=== PATIENT | male | born 1995 | race African-American/Black ===

== ENCOUNTER 2021-07-27 10:58 | Emergency (ER) | payer MEDICAID, SELFPAY ==
[2021-07-27 12:28] VITALS: BP 122/84; PULSE 85; RESP 18; TEMP 36.8; O2SAT 98; BMI 31.6
--- NOTE | 2021-07-27 17:29 | ED.MALEGU ---
HPI - Male Genitourinary General Chief complaint: Urogenital-Male Stated complaint: general discomfort Time Seen by Provider: 07/27/21 17:27 Source: patient Mode of arrival: ambulatory Limitations: no limitations History of Present Illness HPI Narrative: 26 y/o male presenting with dysuria and yellowish penile discharge that started about 4 days ago. It is worsening. It started gradually and has been getting worse. He had unprotected sex with a new partner about 3 weeks ago and is concerned for STI. He has a history of Gonorrhea and reports his symptoms feel the same as when he had that. He denies fevers, testicular pain, abdominal pain, nausea and vomiting. MD Complaint: penile discharge and dysuria Onset (ago): day(s) (4) Duration: intermittent Location: penis Severity: moderate Quality: burning Relieving factors: none Exacerbating factors: urination Context: new sexual partner Associated symptoms: Reports discharge Related Data Sexually active: Yes Previous Rx's Medication Instructions Recorded doxycycline hyclate 100 mg tablet 100 mg PO BID #14 tab 07/27/21 Allergies Allergy/AdvReac Type Severity Reaction Status Date / Time No Known Allergies Allergy Verified 07/27/21 12:28 [No Known Allergies*] Review of Systems Review of Systems: Constitutional: No Fever, No Chills ENT/Mouth: No sore throat Cardiovascular: No Chest Pain, No SOB Gastrointestinal: No Nausea, No Vomiting, No Diarrhea, No abdominal Pain Genitourinary: + Dysuria, No Urinary Frequency, No Hematuria, +penile discharge Musculoskeletal: No joint pain, No Myalgias Skin: No Skin Lesions, No rash Psych: + Anxiety/Panic, No Depression Heme/Lymph: No Lymphadenopathy PMFSH Social History Social History Advance Directives: No Advance Directives Information Provided: Yes Physical Exam Vital Signs: Vital Signs: Last Vital Signs Temp 98.3 F 07/27/21 12:28 Pulse 85 07/27/21 12:28 Resp 18 07/27/21 12:28 BP 122/84 07/27/21 12:28 Pulse Ox 98 07/27/21 12:28 BMI result Body Mass Index 31.6 Appearance: Alert. Oriented X3. No acute distress. HEENT: normal inspection CVS: Normal heart rate and rhythm. Pulses normal. Respiratory: No respiratory distress. Speaking in clear sentences Skin: Skin warm and dry. Normal skin color. Normal skin turgor. No rashes. : normal inspection of external genitalia, nontender testicles, no urethral discharge, no penile lesions Extremities: normal inspection, normal ROM Neuro: Oriented X 3. Grossly normal Course Course Course Narrative: 26 y/o male presenting with urethral discharge and mild dysuria s/p unprotected sex 3 weeks ago. Symptoms consistent with urethritis, most likely CT/NG so will treat empirically. Patient agreeable with plan. Encouraged to follow up with [facility] for additional testing and follow up. Stable for d/c home with continued rx for doxycycline. Critical Care Time Critical Care Time Critical Care Time: No Discharge Plan Discharge Clinical Impression: Urethritis Patient Disposition: Home, Self-Care Instructions: Gonorrhea (ED), Nonspecific Urethritis in Men (ED) Additional Instructions: You were treated for possible Gonorrhea, Chlamydia and Trichomonas Your urine was tested for these infections - IF any are positive we will call you and let you know Recommend also taking the prescribed antibiotic for increase in resistance Follow up with your doctor and/or the [facility] for additional STD testing If you develop new or worsening symptoms call 911 or come back to the ER for further evaluation. Prescriptions: New doxycycline hyclate 100 mg tablet 100 mg PO BID Qty: 14 RF: 0
[2021-07-27] MEDS: metroNIDAZOLE 500 MG TABLET 2000 MG PO (17:51)
[2021-07-27] MEDS: Azithromycin 500 MG TABLET 1000 MG PO (17:56)
[2021-07-27] MEDS: Ondansetron ODT 4 MG TAB.RAPDIS TRANSLINGU (17:56)
[2021-07-27 18:16] LABS: Appearance Urine CLEAR; Color Urine YELLOW; Glucose Urine UA NEG (NEG); Leukocyte Esterase Urine NEG (NEG); Nitrite Urine NEG (NEG); Specific Gravity - Urine 1.025 (1.005-1.025); Urine Blood NEG (NEG); Urine Ketones NEG (NEG); Urine Protein NEG (NEG-TRACE)
[2021-07-27] MEDS: Lidocaine HCl 1 % 20 ML VIAL INFILTRATI (18:21)
[2021-07-27] MEDS: cefTRIAXone sodium 500 MG VIAL IM (18:21)
[2021-07-28 05:32] LABS: CT PCR NOT DETECTED (Not Detect.); NG PCR NOT DETECTED (Not Detect.)
== END 2021-07-27 18:25 | disposition home or self-care (01) ==
PROVIDERS: Physician Assistant; Emergency Provider Emergency Medicine Emergency Medical Services; PCP Internal Medicine
DX: N34.2 Other urethritis (principal); F41.9 Anxiety disorder, unspecified
CPT/HCPCS: 81003; 87491; 87591; 96372; 99283; 99284; J0696

== ENCOUNTER 2022-06-09 20:43 | Inpatient (IN) | payer MEDICAID, OTHER, SELFPAY ==
[2022-06-09 20:48] VITALS: BP 133/75; BP 134/88; PULSE 82; PULSE 91; RESP 19; TEMP 36.6; O2SAT 97; BMI 33.9
--- NOTE | 2022-06-09 21:05 | ED_ITS ---
HPI - Psych General Chief Complaint: Psychiatric Symptoms Stated Complaint: Crisis Time Seen by Provider: 06/09/22 20:54 Source: patient Mode of arrival: ambulatory Limitations: no limitations History of Present Illness HPI Narrative: 27-year-old male with no past pertinent medical history presents today with the chief complaint of my friend was going to [place] [address] me if I did not do it myself . Patient endorses suicidal ideation and states that his he has a plan, that he did not disclose but was going to go through with on Monday. He has increased life stressors including two of relatives, a break-up, and increasing financial issues in the past 3 months. He lives alone and works at [employer]. Denies auditory, visual, tactile hallucinations. He has never been seen by a psychiatrist before, has never been on psychiatric medications before. No prior psychiatric hospitalization. Denies drugs, alcohol, tobacco use currently. No medical complaints. He says he has had suicidal ideation in the past couple of months however has not pursued help for this or attempted suicide. Related Data Home Medications Medication Instructions Recorded Confirmed No Known Home Meds 06/09/22 06/09/22 Allergies Allergy/AdvReac Type Severity Reaction Status Date / Time No Known Allergies Allergy Verified 06/09/22 21:43 [No Known Allergies*] Review of Systems Review of Systems: Constitutional : No Weight loss, No Fever, No Chills, No Fatigue, No Malaise ENT/Mouth : No sore throat, No Rhinorrhea Eyes: No Eye Pain, No Swelling, No Redness Cardiovascular : No Chest Pain, No SOB, No Dyspnea on Exertion, No Orthopnea, No Edema, No Palpitations Respiratory : No Cough, No Sputum, No Wheezing Gastrointestinal : No Nausea, No Vomiting, No Diarrhea, No Constipation, No abdominal Pain, No Hematochezia, No Melena Genitourinary : No Dysuria, No Urinary Frequency, No Hematuria, Musculoskeletal : No joint pain, No Myalgias, No Joint Swelling Skin : No Skin Lesions, No rash Neuro : No Weakness, No Numbness, No Dizziness, No Headache Psych : + Anxiety, no Panic, + Depression, +SI, no HI, no A/V/T hallucinations All other systems reviewed and are negative PMFSH Past Medical History Attestation statement: The following information was validated with the patient. Source: old records reviewed and nursing notes reviewed Social History Social History Advance Directives: No Advance Directives Information Provided: Yes Physical Exam Vital Signs: Vital Signs: Last Vital Signs Temp 97.9 F 06/09/22 20:48 Pulse 91 06/09/22 20:48 Resp 19 06/09/22 20:48 BP 133/75 06/09/22 20:48 Pulse Ox 97 06/09/22 20:48 O2 Del Method 06/09/22 20:48 BMI result Body Mass Index 33.9 Appearance: Alert.? Oriented X3.? No acute distress.? Head: Normocephalic, atraumatic, no step-offs or deformities Eyes: Pupils equal, round and reactive to light.?EOMI. No nystagmus. CVS: Normal heart rate and rhythm.? Pulses normal.? Respiratory: No respiratory distress.? Breath sounds normal.? Abdomen: Soft and nontender.? Skin: Skin warm and dry.? Normal skin color.? Normal skin turgor.? Extremities: No lower extremity edema.? No calf ttp. 5/5 strength to bilateral upper and lower extremities Back: No midline tenderness, no C-spine tenderness, full range of motion, no CVA tenderness bilaterally Neuro: Oriented X 3.? No motor deficit.? No sensory deficit. CN 2-12 intact. Aff ect appropriate. Course Reevaluation(s) Reevaluation #1: CBC appears to be within normal limits. Chemistry with no acute findings. UA clean without infection. Urine toxicology negative. Ethanol negative. COVID negative. At this time patient will be placed into observation to allow more time to be evaluated by the behavioral health team. At time observation was started patient common cooperative no acute distress will continue to monitor Time: 22:25 MDM - Psych MDM Narrative Medical decision making narrative: [id number] 27-year-old male with no past pertinent medical history a here for suicidal ideation with a plan. PE benign. Plan to medically clear patient and they referred to crisis. Medical Records Attestation: I reviewed the patient's medical records. Lab Data Attestation: I reviewed the patient's lab results. Result diagrams: 06/09/22 21:12 06/09/22 21:12 Labs: Lab Results 06/09/22 06/09/22 06/09/22 Range/Units 21:03 21:03 21:03 WBC (4.8-10.8) X10*3/uL RBC (4.60-5.80) X10*6/uL Hgb (14.0-18.0) g/dl Hct (42.0-52.0) % MCV (80.0-98.0) fL MCH (27.0-33.0) pg MCHC (31.0-36.0) g/dl RDW (11.0-16.0) % Plt Count (160-400) X10*3/uL MPV (9.4-12.4) fL Immature Gran % (Auto) (0.0-0.4) % Neut % (Auto) (45-73) % Lymph % (Auto) (20-40) % [place] % (Auto) (2-11) % Eos % (Auto) (0-4) % Baso % (Auto) (0-2) % Lymph # (Auto) (1.2-4.9) X10*3/uL [place] # (Auto) (0.1-1.2) X10*3/uL Eos # (Auto) (0.0-0.4) X10*3/uL Baso # (Auto) (0.0-0.2) X10*3/uL Abs Immat Gran (auto) (0.00-0.03) X10*3/uL Absolute Neuts (auto) (2.0-8.3) x10*3/uL Absolute Nucleated RBC (0.0-0.012) X10*3/uL Nucleated RBC % (auto) (0.0-0.2) /100WBC Sodium (135-145) mmol/L Potassium (3.3-5.1) mmol/L Chloride (96-108) mmol/L Carbon Dioxide (22-29) mmol/L Anion Gap (12-20) BUN (9-16) mg/dL Creatinine (0.5-1.4) mg/dL Estim Creat Clear Calc Estimated GFR Random Glucose (60-115) mg/dL Calcium (8.4-10.2) mg/dL Magnesium (1.6-2.6) mg/dL Total Bilirubin (0.0-1.0) mg/dL AST (5-37) U/L ALT (0-40) U/L Alkaline Phosphatase (39-117) U/L Total Protein (6.5-8.0) g/dL Albumin (3.5-5.0) g/dL Urine Color Yellow Urine Appearance Clear Urine pH 5.5 (5.0-9.0) Ur Specific [place] >= 1.030 H (1.005-1.025) Urine Protein Negative (Neg-Trace) mg/dL Urine Glucose (UA) Negative (Negative) mg/dL Urine Ketones Negative (Negative) mg/dL Urine Blood Negative (Negative) Urine Nitrite Negative (Negative) Ur Leukocyte Esterase Negative (Negative) Urine Opiates Screen Not Detected (Not Detect) Urine Fentanyl Screen Not Detected (Not Detect) Ur Barbiturates Screen Not Detected (Not Detect) Ur Phencyclidine Scrn Not Detected (Not Detect) Ur Amphetamines Screen Not Detected (Not Detect) U Benzodiazepines Scrn Not Detected (Not Detect) Urine Cocaine Screen Not Detected (Not Detect) U Marijuana (THC) Screen Not Detected (Not Detect) Ethyl Alcohol mg/dL COVID-19 (SCOUT) Negative (Negative) COVID-19 Clin Com See Note 06/09/22 06/09/22 Range/Units 21:12 21:12 WBC 8.8 (4.8-10.8) X10*3/uL RBC 5.23 (4.60-5.80) X10*6/uL Hgb 15.4 (14.0-18.0) g/dl Hct 45.2 (42.0-52.0) % MCV 86.4 (80.0-98.0) fL MCH 29.4 (27.0-33.0) pg MCHC 34.1 (31.0-36.0) g/dl RDW 13.4 (11.0-16.0) % Plt Count 236 (160-400) X10*3/uL MPV 9.8 (9.4-12.4) fL Immature Gran % (Auto) 0.1 (0.0-0.4) % Neut % (Auto) 54.3 (45-73) % Lymph % (Auto) 35.2 (20-40) % [place] % (Auto) 8.7 (2-11) % Eos % (Auto) 1.5 (0-4) % Baso % (Auto) 0.2 (0-2) % Lymph # (Auto) 3.1 (1.2-4.9) X10*3/uL [place] # (Auto) 0.8 (0.1-1.2) X10*3/uL Eos # (Auto) 0.1 (0.0-0.4) X10*3/uL Baso # (Auto) 0.0 (0.0-0.2) X10*3/uL Abs Immat Gran (auto) 0.01 (0.00-0.03) X10*3/uL Absolute Neuts (auto) 4.8 (2.0-8.3) x10*3/uL Absolute Nucleated RBC 0.000 (0.0-0.012) X10*3/uL Nucleated RBC % (auto) 0.0 (0.0-0.2) /100WBC Sodium 141 (135-145) mmol/L Potassium 3.8 (3.3-5.1) mmol/L Chloride 104 (96-108) mmol/L Carbon Dioxide 25 (22-29) mmol/L Anion Gap 16 (12-20) BUN 16 (9-16) mg/dL Creatinine 0.94 (0.5-1.4) mg/dL Estim Creat Clear Calc TNP Estimated GFR > 60 Random Glucose 107 (60-115) mg/dL Calcium 10.2 (8.4-10.2) mg/dL Magnesium 2.2 (1.6-2.6) mg/dL Total Bilirubin 0.5 (0.0-1.0) mg/dL AST 16 (5-37) U/L ALT 29 (0-40) U/L Alkaline Phosphatase 72 (39-117) U/L Total Protein 7.6 (6.5-8.0) g/dL Albumin 4.6 (3.5-5.0) g/dL Urine Color Urine Appearance Urine pH (5.0-9.0) Ur Specific [place] (1.005-1.025) Urine Protein (Neg-Trace) mg/dL Urine Glucose (UA) (Negative) mg/dL Urine Ketones (Negative) mg/dL Urine Blood (Negative) Urine Nitrite (Negative) Ur Leukocyte Esterase (Negative) Urine Opiates Screen (Not Detect) Urine Fentanyl Screen (Not Detect) Ur Barbiturates Screen (Not Detect) Ur Phencyclidine Scrn (Not Detect) Ur Amphetamines Screen (Not Detect) U Benzodiazepines Scrn (Not Detect) Urine Cocaine Screen (Not Detect) U Marijuana (THC) Screen (Not Detect) Ethyl Alcohol < 10 mg/dL COVID-19 (SCOUT) (Negative) COVID-19 Clin Com Critical Care Time Critical Care Time Critical Care Time: No Discharge Plan Discharge Clinical Impression: Suicidal ideation, Depression Patient Disposition: Still a Patient Prescriptions: No Action No Known Home Meds
[2022-06-09 21:14] LABS: Appearance Urine Clear; Color Urine Yellow; Glucose Urine UA Negative (Negative); Leukocyte Esterase Urine Negative (Negative); Nitrite Urine Negative (Negative); PH 5.5 (5.0-9.0); Specific Gravity - Urine >= 1.030 (1.005-1.025); Urine Blood Negative (Negative); Urine Ketones Negative (Negative); Urine Protein Negative (Neg-Trace)
--- NOTE | 2022-06-09 21:16 | PHA.MEDREC ---
Pharmacy Consult ? Medication Reconciliation Pharmacy has completed the medication reconciliation.
[2022-06-09 21:18] LABS: MANUAL DIFF FLAG NO
[2022-06-09 21:22] LABS: Basophils Percent Auto 0.2 % (0-2); Eosinophils Absolute Auto 0.1 X10*3/uL (0.0-0.4); Eosinophils Percent Auto 1.5 % (0-4); Hematocrit 45.2 % (42.0-52.0); Hemoglobin 15.4 g/dl (14.0-18.0); Imm Gran Abs Auto 0.01 X10*3/uL (0.00-0.03); Imm Gran Pct Auto 0.1 % (0.0-0.4); Lymphocytes Absolute Auto 3.1 X10*3/uL (1.2-4.9); Lymphocytes Percent Auto 35.2 % (20-40); Mean Corpuscular HGB Conc 34.1 g/dl (31.0-36.0); Mean Corpuscular Hemoglobin 29.4 pg (27.0-33.0); Mean Corpuscular Volume 86.4 fL (80.0-98.0); Mean Platelet Volume 9.8 fL (9.4-12.4); Monocytes Absolute Auto 0.8 X10*3/uL (0.1-1.2); Monocytes Percent Auto 8.7 % (2-11); Neutrophils Absolute Auto 4.8 x10*3/uL (2.0-8.3); Neutrophils Percent Auto 54.3 % (45-73); Platelet Count 236 X10*3/uL (160-400); Red Blood Count 5.23 X10*6/uL (4.60-5.80); Red Cell Distribution Width 13.4 % (11.0-16.0); White Blood Count 8.8 X10*3/uL (4.8-10.8)
[2022-06-09 21:30] LABS: Amphetamine Screen Urine Not Detected (Not Detect); Barbiturates, Urine Not Detected (Not Detect); Benzodiazepines Screen Urine Not Detected (Not Detect); Cannabinoid Screen Urine Not Detected (Not Detect); Cocaine Screen Urine Not Detected (Not Detect); Fentanyl, urine Not Detected (Not Detect); Opiate Screen Urine Not Detected (Not Detect); Phencyclidine Screen Urine Not Detected (Not Detect)
[2022-06-09 21:31] LABS: COVID-19 Test Negative (Negative)
[2022-06-09 21:38] LABS: Alanine Aminotransferase 29 U/L (0-40); Albumin Level 4.6 g/dL (3.5-5.0); Alkaline Phosphatase 72 U/L (39-117); Anion Gap 16 (12-20); Aspartate Amino Transferase 16 U/L (5-37); Bilirubin Total 0.5 mg/dL (0.0-1.0); Blood Urea Nitrogen 16 mg/dL (9-16); Calcium 10.2 mg/dL (8.4-10.2); Carbon Dioxide 25 mmol/L (22-29); Chloride 104 mmol/L (96-108); Estimated Glomerular Filt Rate > 60; Ethanol < 10 mg/dL; Glucose Random 107 mg/dL (60-115); Magnesium 2.2 mg/dL (1.6-2.6); Potassium 3.8 mmol/L (3.3-5.1); Sodium 141 mmol/L (135-145); Total Protein 7.6 g/dL (6.5-8.0)
--- NOTE | 2022-06-09 21:44 | PC.NURSE ---
pt arrived alert and oriented from home on sec 12. pt report that he been having SI and depression. pt stated that it been rough few months since his birthday, he had a family on his birthday. pt stated that since then, he broke up with his girlfriend and it been hard since them. pt stated that he was planning to commit SI on Monday or after . pt report having multiple SI plans, I have industrial cord at home which I can tide around my neck and tide the other end to my lifting weight and throw them out of the window and sit against the window , or I can take jumping cable from my car and put the other end of the cable in water or knife . pt denies any HI. N referral sent
[2022-06-10 05:49] VITALS: BP 103/64; PULSE 86; RESP 16; TEMP 36.3; O2SAT 98
[2022-06-10 12:53] VITALS: BP 126/81; PULSE 85; RESP 16; TEMP 36.6; O2SAT 98
[2022-06-10 22:10] VITALS: BP 134/87; PULSE 71; RESP 16; TEMP 36.3; O2SAT 96
--- NOTE | 2022-06-11 00:44 | PC.ADMIT ---
Patient is a 27 year old male admitted from the [facility] ED. UTOX negative. Covid Negative. Patient presented to the ED reporting that he had a plan to kill himself on Monday by tieing some weights around his neck and then throwing the weights out the window. On arrival to , patient cooperative and polite. Reports anxiety 3/10 with depression 2/10. Patient currently denies any SI/HI. Reports no AH/VH. Patient signed in CV.
--- NOTE | 2022-06-11 00:54 | HO.PSYADMNOT ---
HPI Date of Service: 06/12/22 Chief Complaint: Depression, SI Sources of Information: patient interviewed and chart reviewed HPI Subjective Notes: Khalil Warning and Conditional Voluntary Healthcare Proxy: No Guardianship: No Medical Problems Affecting Mental Status: No Narrative: Sree is a 27 y.o. male who carries a dx of MDD recurrent. He presented to [facility] ED on 06/09/22 due to SI and stated he had a plan to hang himself with an industrial extension cable tie around his neck and throw it out the window, was going to go through with on Monday. He has increased life stressors including cousin dying of overdose in 02/2022, a recent break-up from [employer] x 1 year, and financial stress.? He lives alone and works for [employer].? No previous psych tx other than OP therapy.?Denies illicit substance abuse or alcohol abuse.? Spoke with pt. He admits to having SI with a specific plan, i.e. wanted to tie an electric cord around his neck and tie weights to it, let it hang out the window, and hope that he didn?t have the strength to pull it up. Said he felt suicidal since April and picked this Monday as the day because he thought it would give him time to say goodbye to people, however he never followed through with this. Instead, says he has talked to his best friend a lot and his therapist twice a week and this has been helping to the point that his SI went from ?90-100 percent ready? to ?80 percent.? Currently pt says he does not feel like he belongs on the psych unit, ?I don?t have it in me? for suicide. Says his recent breakup has been triggering as he had a previous break up two years ago that was also followed by a in his family. Also hates the holidays. Says the breakup hurts every day. Sx of depression includes he has not been leaving his apartment, didn?t want to do anything, ?would lay in bed and sit in my feelings,? didn?t play video games or watch tv, would only listen to sad music. Sleep is good, energy intact. Says the breakup still hurts and he has intrusive thoughts about the break up but he is feeling ?more hopeful? overall. 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 Not interested in medication at this point. Past Psychiatric History: -Has OP therapy, [facility] Medical Evaluation Reviewed: Yes [facility] Social History: -Lives alone, works for [employer]. -Hx of being in the Substance History: -Denies Trauma History: -Pt reports his current admission is parallel to previous experience in 2016 in which he had a significant break up and his grandparents immediately afterwards, then was kicked out of his apartment, and lost his job. -Hx of bio family being briefly homeless [employer] bouncing from hotel to hotel. Diagnostics Vital Signs (24Hr): Vital Signs - 24 hr 06/10/22 05:49 06/10/22 12:53 06/10/22 22:10 Temperature 97.4 F 97.8 F 97.4 F Pulse Rate 86 85 71 Respiratory Rate 16 16 16 Blood Pressure 103/64 126/81 134/87 Pulse Oximetry 98 98 96 Oxygen Delivery Method Room Air Room Air Room Air BMI result Body Mass Index 33.9 Labs Results: 06/09/22 21:12 06/09/22 21:12 Labs: Laboratory Results - last 48 hr 06/09/22 06/09/22 06/09/22 21:03 21:03 21:03 WBC RBC Hgb Hct MCV MCH MCHC RDW Plt Count MPV Immature Gran % (Auto) Neut % (Auto) Lymph % (Auto) [place] % (Auto) Eos % (Auto) Baso % (Auto) Lymph # (Auto) [place] # (Auto) Eos # (Auto) Baso # (Auto) Abs Immat Gran (auto) Absolute Neuts (auto) Absolute Nucleated RBC Nucleated RBC % (auto) Sodium Potassium Chloride Carbon Dioxide Anion Gap BUN Creatinine Estim Creat Clear Calc Estimated GFR Random Glucose Calcium Magnesium Total Bilirubin AST ALT Alkaline Phosphatase Total Protein Albumin Urine Color Yellow Urine Appearance Clear Urine pH 5.5 Ur Specific [place] >= 1.030 H Urine Protein Negative Urine Glucose (UA) Negative Urine Ketones Negative Urine Blood Negative Urine Nitrite Negative Ur Leukocyte Esterase Negative Urine Opiates Screen Not Detected Urine Fentanyl Screen Not Detected Ur Barbiturates Screen Not Detected Ur Phencyclidine Scrn Not Detected Ur Amphetamines Screen Not Detected U Benzodiazepines Scrn Not Detected Urine Cocaine Screen Not Detected U Marijuana (THC) Screen Not Detected Ethyl Alcohol COVID-19 (SCOUT) Negative COVID-19 Clin Com See Note 11/17/22 11/17/22 21:12 21:12 WBC 8.8 RBC 5.23 Hgb 15.4 Hct 45.2 MCV 86.4 MCH 29.4 MCHC 34.1 RDW 13.4 Plt Count 236 MPV 9.8 Immature Gran % (Auto) 0.1 Neut % (Auto) 54.3 Lymph % (Auto) 35.2 [place] % (Auto) 8.7 Eos % (Auto) 1.5 Baso % (Auto) 0.2 Lymph # (Auto) 3.1 [place] # (Auto) 0.8 Eos # (Auto) 0.1 Baso # (Auto) 0.0 Abs Immat Gran (auto) 0.01 Absolute Neuts (auto) 4.8 Absolute Nucleated RBC 0.000 Nucleated RBC % (auto) 0.0 Sodium 141 Potassium 3.8 Chloride 104 Carbon Dioxide 25 Anion Gap 16 BUN 16 Creatinine 0.94 Estim Creat Clear Calc TNP Estimated GFR > 60 Random Glucose 107 Calcium 10.2 Magnesium 2.2 Total Bilirubin 0.5 AST 16 ALT 29 Alkaline Phosphatase 72 Total Protein 7.6 Albumin 4.6 Urine Color Urine Appearance Urine pH Ur Specific [place] Urine Protein Urine Glucose (UA) Urine Ketones Urine Blood Urine Nitrite Ur Leukocyte Esterase Urine Opiates Screen Urine Fentanyl Screen Ur Barbiturates Screen Ur Phencyclidine Scrn Ur Amphetamines Screen U Benzodiazepines Scrn Urine Cocaine Screen U Marijuana (THC) Screen Ethyl Alcohol < 10 COVID-19 (SCOUT) COVID-19 Clin Com Meds/Allergies Meds Home Medications Medication Instructions Recorded Confirmed Type No Known Home Meds 06/09/22 06/09/22 History Allergies Allergies Allergy/AdvReac Type Severity Reaction Status Date / Time No Known Allergies Allergy Verified 06/09/22 21:43 [No Known Allergies*] Mental Status Exam Mental Status Exam Narrative: A&O. Overweight, hospital attire. Good eye contact, attentive. No Tics or Tremors. No abnormal involuntary movements. Calm, cooperative, engaged. Non-pressured speech, spontaneous with regular rate and rhythm, normal volume and prosody. No prolonged speech latency or dysarthria. Mood is ?depressed,? affect is appropriate. Denies SI/SIB/HI upon inquiry. Denies A/VH or delusional thought content. Thoughts are coherent, organized. No known cognitive or memory impairment. Insight/ Judgment fair and adequate. Assessment & Plan Assessment & Plan (1) MDD (major depressive disorder), recurrent episode, moderate: Status: Acute Code(s): F33.1 - Major depressive disorder, recurrent, moderate Plan Sree is a 27 y.o. male who carries a dx of MDD recurrent. He presented to [facility] ED on 06/09/22 due to SI and stated he had a plan to hang himself with an industrial extension cable tie around his neck and throw it out the window, was going to go through with on Monday. He has increased life stressors including cousin dying of overdose in 02/2022, a recent break-up from [employer] x 1 year, and financial stress.? He lives alone and works for [employer].? No previous psych tx other than OP therapy.?Denies illicit substance abuse or alcohol abuse.? Plan: Pt does not want to take medication, prefers therapy, forthcoming about his depression and SI but says he is no longer suicidal. Q15 min safety checks, CV Monitor response to medications. Monitor for safety in the milieu. Discharge on stabilization. Patient seen. Chart reviewed. Discussed with team. Obtain collateral contact info?as needed Patient educated on: diagnosis, medication risk/benefits and therapeutic strategies Reason for continued inpatient stay Substantial Risk for: med/psych decompensation
[2022-06-11 08:15] VITALS: BP 122/82; PULSE 74; RESP 18; TEMP 36.6; O2SAT 98
[2022-06-11 08:35] LABS: Estimated Average Glucose 111 mg/dL; Hemoglobin A1c % 5.5 %
[2022-06-11 08:43] LABS: Cholesterol 166 mg/dL; Free T4 (Free Thyroxine) 0.83 ng/dL (0.71-1.85); HDL Cholesterol 34 mg/dL; LDL Cholesterol Calculated 114 mg/dl; Magnesium 2.2 mg/dL (1.6-2.6); Thyroid Stimulating Hormone 0.55 uIU/mL (0.32-4.0); Triglycerides 94 mg/dL
[2022-06-11 08:56] LABS: Folate 9.2 ng/mL (> or = 4.0); Vitamin B12 646 pg/mL (200-900)
--- NOTE | 2022-06-11 10:17 | PC.NURSE ---
PT SIGNED A 3 DAY NOTICE 06/11/22, UP ON 06/15/22
[2022-06-11 19:28] VITALS: BP 134/86; PULSE 77; RESP 16; TEMP 36.6; O2SAT 98
--- NOTE | 2022-06-12 01:52 | P.PNPSI_ITS ---
Subjective Subjective Date of Service: 06/12/22 Reason For Visit: Depression, SI Subjective Notes: Khalil Warning and Conditional Voluntary Healthcare Proxy: No Guardianship: No Medical Problems Affecting Mental Status: No Interim History: Discussed with team. Spoke with pt. He says he is feeling pretty good, at ease, slept through the night. Says talking to staff has helped, going to rasta ups. Says the therapeutic aspects of the admission have brought him a sense of peace. Denies SI, not at all. Still has intrusive thoughts r/t the breakup. Attending Groups: Yes Review of Systems Acute medical concerns: No Medical Review of Systems: unchanged Diagnostics Vital Signs (24Hr): Vital Signs - 24 hr 06/11/22 08:15 06/11/22 19:28 Temperature 97.8 F 97.9 F Pulse Rate 74 77 Respiratory Rate 18 16 Blood Pressure 122/82 134/86 Pulse Oximetry 98 98 Oxygen Delivery Method Room Air Room Air BMI result Body Mass Index 33.9 Labs Results: 06/09/22 21:12 06/09/22 21:12 Labs: Laboratory Results - last 48 hr 06/11/22 06/11/22 06/11/22 07:29 07:29 07:29 Estimat Average Glucose 111 Hemoglobin A1c % 5.5 Magnesium 2.2 Triglycerides 94 Cholesterol 166 LDL Cholesterol, Calc 114 HDL Cholesterol 34 Vitamin B12 646 Folate 9.2 TSH 0.55 Free T4 0.83 Medications Medications Current Medications Acetaminophen (Acetaminophen 325 Mg Tablet) 650 mg PO Q6H PRN PRN Reason: Headache/Pain Mild Scale (1-3) Al Hydroxide/Mg Hydroxide (Magnesium Hydrox/Alum Hydrox 30 Ml Oral.Susp) 30 ml PO Q6H PRN PRN Reason: Heartburn/Nausea Hydroxyzine HCl (Hydroxyzine Hcl 25 Mg Tablet) 25 mg PO Q6H PRN PRN Reason: Anxiety Magnesium Hydroxide (Milk Of Magnesia 30 Ml Oral.Susp) 30 ml PO DAILY PRN PRN Reason: Constipation Pharmacy Consult (Consult Rx Perform Med Rec) 1 each MISCELLANE ONCE PRN PRN Reason: Consult order Trazodone HCl (Trazodone Hcl 50 Mg Tablet) 50 mg PO BEDTIME PRN PRN Reason: Insomnia Allergies Allergies Allergy/AdvReac Type Severity Reaction Status Date / Time No Known Allergies Allergy Verified 06/09/22 21:43 [No Known Allergies*] Assessment & Plan Assessment & Plan (1) MDD (major depressive disorder), recurrent episode, moderate: Status: Acute Code(s): F33.1 - Major depressive disorder, recurrent, moderate Plan Sree is a 27 y.o. male who carries a dx of MDD recurrent. He presented to [facility] on 06/09/22 due to SI and stated he had a plan to hang himself with an industrial extension cable tie around his neck and throw it out the window, was going to go through with on Monday. He has increased life stressors including cousin dying of overdose in 02/2022, a recent break-up from [email or web address] x 1 year, and financial stress.? He lives alone and works for [email or web address].? No previous psych tx other than OP therapy.?Denies illicit substance abuse or alcohol abuse.? Plan: Pt does not want to take medication, prefers therapy, forthcoming about his depression and SI but says he is no longer suicidal. 06/12: Pt continues to report no interest in medication, advocating for d ischarge, denies SI Q15 min safety checks, CV Monitor response to medications. Monitor for safety in the milieu. Discharge on stabilization. Patient seen. Chart reviewed. Discussed with team. Obtain collateral contact info?as needed I spent minutes with the patient and/or on the patient floor today, greater than?50% of which was spent counseling/coordinating care. Patient educated on: therapeutic strategies Reason for contiued inpatient stay Substantial Risk for: med/psych decompensation
[2022-06-12 08:20] VITALS: BP 125/65; PULSE 87; RESP 18; TEMP 36.6; O2SAT 99
[2022-06-12 18:15] VITALS: BP 138/73; PULSE 97; RESP 6; TEMP 36.8; O2SAT 97
[2022-06-13 08:45] VITALS: BP 130/63; PULSE 91; RESP 18; TEMP 36.6; O2SAT 98
--- NOTE | 2022-06-13 17:37 | P.PNPSI_ITS ---
Subjective Subjective Date of Service: 06/13/22 Reason For Visit: Depression, SI Subjective Notes: Khalil Warning and Conditional Voluntary Healthcare Proxy: No Guardianship: No Medical Problems Affecting Mental Status: No Interim History: Discussed with team. Spoke with pt, he has been playing cards, Noel, all day. Has follow up therapy on Monday. He declined other follow up appointments. Says he feels like he has a pretty solid support system. Denies mood concerns, Im good, denies SI. Denies behavioral health concerns. Says being inpatient has put a lot of things into perspective. Mental Status Exam Mental Status Exam Narrative: A&O. Overweight, hospital attire. Good eye contact, attentive. No Tics or Tremors. No abnormal involuntary movements. Calm, cooperative, engaged. Non- pressured speech, spontaneous with regular rate and rhythm, normal volume and prosody. No prolonged speech latency or dysarthria. Mood is ?depressed,? affect is appropriate. Denies SI/SIB/HI upon inquiry. Denies A/VH or delusional thought content. Thoughts are coherent, organized. No known cognitive or memory impairment. Insight/ Judgment fair and adequate. Diagnostics Vital Signs (24Hr): Vital Signs - 24 hr 06/12/22 18:15 06/13/22 08:45 Temperature 98.2 F 97.9 F Pulse Rate 97 91 Respiratory Rate 6 L 18 Blood Pressure 138/73 130/63 Pulse Oximetry 97 98 Oxygen Delivery Method Room Air Room Air BMI result Body Mass Index 33.9 Labs Results: 06/09/22 21:12 06/09/22 21:12 Medications Medications Current Medications Acetaminophen (Acetaminophen 325 Mg Tablet) 650 mg PO Q6H PRN PRN Reason: Headache/Pain Mild Scale (1-3) Al Hydroxide/Mg Hydroxide (Magnesium Hydrox/Alum Hydrox 30 Ml Oral.Susp) 30 ml PO Q6H PRN PRN Reason: Heartburn/Nausea Hydroxyzine HCl (Hydroxyzine Hcl 25 Mg Tablet) 25 mg PO Q6H PRN PRN Reason: Anxiety Magnesium Hydroxide (Milk Of Magnesia 30 Ml Oral.Susp) 30 ml PO DAILY PRN PRN Reason: Constipation Pharmacy Consult (Consult Rx Perform Med Rec) 1 each MISCELLANE ONCE PRN PRN Reason: Consult order Trazodone HCl (Trazodone Hcl 50 Mg Tablet) 50 mg PO BEDTIME PRN PRN Reason: Insomnia Allergies Allergies Allergy/AdvReac Type Severity Reaction Status Date / Time No Known Allergies Allergy Verified 06/09/22 21:43 [No Known Allergies*] Assessment & Plan Assessment & Plan (1) MDD (major depressive disorder), recurrent episode, moderate: Status: Acute Code(s): F33.1 - Major depressive disorder, recurrent, moderate Plan Sree is a 27 y.o. male who carries a dx of MDD recurrent. He presented to [facility] on 06/09/22 due to SI and stated he had a plan to hang himself with an industrial extension cable tie around his neck and throw it out the window, was going to go through with on Monday. He has increased life stressors including cousin dying of overdose in 02/2022, a recent break-up from [employer] x 1 year, and financial stress.? He lives alone and works for [employer].? No previous psych tx other than OP therapy.?Denies illicit substance abuse or alcohol abuse.? Plan: Pt does not want to take medication, prefers therapy, forthcoming about his depression and SI but says he is no longer suicidal. 06/12: Pt continues to report no interest in medication, advocating for discharge, denies SI 06/13: Pt feels stable, at baseline Q15 min safety checks, CV Monitor response to medications. Monitor for safety in the milieu. Discharge on stabilization. Patient seen. Chart reviewed. Discussed with team. Obtain collateral contact info?as needed I spent minutes with the patient and/or on the patient floor today, greater than?50% of which was spent counseling/coordinating care. Patient educated on: diagnosis, medication risk/benefits and therapeutic strategies Reason for contiued inpatient stay Substantial Risk for: stable for discharge
--- NOTE | 2022-06-13 17:56 | PM.PSYDC ---
DS: Providers Provider Date of Service: 06/13/22 Date of admission: 06/10/22 20:38 Date of discharge: 06/13/22 Primary care physician: [facility] Admitting clinician: Camille Barron Attending physician on admission: Wali Carter Attending physician on discharge: Wali Carter Discharging clinician: Camille Barron DS: Diagnosis Discharge Diagnosis (1) MDD (major depressive disorder), recurrent episode, moderate: Status: Acute DS: Medications Discharge Medications Home Medications: Home Medications Medication Instructions Recorded Confirmed No Known Home Meds 06/09/22 06/09/22 Mental Status Exam Mental Status Exam Narrative: A&O. Overweight, hospital attire. Good eye contact, attentive. No Tics or Tremors. No abnormal involuntary movements. Calm, cooperative, engaged. Non-pressured speech, spontaneous with regular rate and rhythm, normal volume and prosody. No prolonged speech latency or dysarthria. Mood is ?depressed,? affect is appropriate. Denies SI/SIB/HI upon inquiry. Denies A/VH or delusional thought content. Thoughts are coherent, organized. No known cognitive or memory impairment. Insight/ Judgment fair and adequate. Data Data Completed and Pending Completed studies during hospitalization [Text1]: 06/09/22 06/09/22 06/09/22 21:03 21:03 21:03 WBC RBC Hgb Hct MCV MCH MCHC RDW Plt Count MPV Immature Gran % (Auto) Neut % (Auto) Lymph % (Auto) [place] % (Auto) Eos % (Auto) Baso % (Auto) Lymph # (Auto) [place] # (Auto) Eos # (Auto) Baso # (Auto) Abs Immat Gran (auto) Absolute Neuts (auto) Absolute Nucleated RBC Nucleated RBC % (auto) Sodium Potassium Chloride Carbon Dioxide Anion Gap BUN Creatinine Estim Creat Clear Calc Estimated GFR Random Glucose Estimat Average Glucose Hemoglobin A1c % Calcium Magnesium Total Bilirubin AST ALT Alkaline Phosphatase Total Protein Albumin Triglycerides Cholesterol LDL Cholesterol, Calc HDL Cholesterol Vitamin B12 Folate TSH Free T4 Urine Color Yellow Urine Appearance Clear Urine pH 5.5 Ur Specific Quinter >= 1.030 H Urine Protein Negative Urine Glucose (UA) Negative Urine Ketones Negative Urine Blood Negative Urine Nitrite Negative Ur Leukocyte Esterase Negative Urine Opiates Screen Not Detected Urine Fentanyl Screen Not Detected Ur Barbiturates Screen Not Detected Ur Phencyclidine Scrn Not Detected Ur Amphetamines Screen Not Detected U Benzodiazepines Scrn Not Detected Urine Cocaine Screen Not Detected U Marijuana (THC) Screen Not Detected Ethyl Alcohol COVID-19 (SCOUT) Negative COVID-19 Clin Com See Note 06/09/22 06/09/22 06/11/22 21:12 21:12 07:29 WBC 8.8 RBC 5.23 Hgb 15.4 Hct 45.2 MCV 86.4 MCH 29.4 MCHC 34.1 RDW 13.4 Plt Count 236 MPV 9.8 Immature Gran % (Auto) 0.1 Neut % (Auto) 54.3 Lymph % (Auto) 35.2 [place] % (Auto) 8.7 Eos % (Auto) 1.5 Baso % (Auto) 0.2 Lymph # (Auto) 3.1 [place] # (Auto) 0.8 Eos # (Auto) 0.1 Baso # (Auto) 0.0 Abs Immat Gran (auto) 0.01 Absolute Neuts (auto) 4.8 Absolute Nucleated RBC 0.000 Nucleated RBC % (auto) 0.0 Sodium 141 Potassium 3.8 Chloride 104 Carbon Dioxide 25 Anion Gap 16 BUN 16 Creatinine 0.94 Estim Creat Clear Calc TNP Estimated GFR > 60 Random Glucose 107 Estimat Average Glucose 111 Hemoglobin A1c % 5.5 Calcium 10.2 Magnesium 2.2 Total Bilirubin 0.5 AST 16 ALT 29 Alkaline Phosphatase 72 Total Protein 7.6 Albumin 4.6 Triglycerides Cholesterol LDL Cholesterol, Calc HDL Cholesterol Vitamin B12 Folate TSH Free T4 Urine Color Urine Appearance Urine pH Ur Specific Quinter Urine Protein Urine Glucose (UA) Urine Ketones Urine Blood Urine Nitrite Ur Leukocyte Esterase Urine Opiates Screen Urine Fentanyl Screen Ur Barbiturates Screen Ur Phencyclidine Scrn Ur Amphetamines Screen U Benzodiazepines Scrn Urine Cocaine Screen U Marijuana (THC) Screen Ethyl Alcohol < 10 COVID-19 (SCOUT) COVID-19 Clin Com 06/11/22 06/11/22 07:29 07:29 WBC RBC Hgb Hct MCV MCH MCHC RDW Plt Count MPV Immature Gran % (Auto) Neut % (Auto) Lymph % (Auto) [place] % (Auto) Eos % (Auto) Baso % (Auto) Lymph # (Auto) [place] # (Auto) Eos # (Auto) Baso # (Auto) Abs Immat Gran (auto) Absolute Neuts (auto) Absolute Nucleated RBC Nucleated RBC % (auto) Sodium Potassium Chloride Carbon Dioxide Anion Gap BUN Creatinine Estim Creat Clear Calc Estimated GFR Random Glucose Estimat Average Glucose Hemoglobin A1c % Calcium Magnesium 2.2 Total Bilirubin AST ALT Alkaline Phosphatase Total Protein Albumin Triglycerides 94 Cholesterol 166 LDL Cholesterol, Calc 114 HDL Cholesterol 34 Vitamin B12 646 Folate 9.2 TSH 0.55 Free T4 0.83 Urine Color Urine Appearance Urine pH Ur Specific [place]inter Urine Protein Urine Glucose (UA) Urine Ketones Urine Blood Urine Nitrite Ur Leukocyte Esterase Urine Opiates Screen Urine Fentanyl Screen Ur Barbiturates Screen Ur Phencyclidine Scrn Ur Amphetamines Screen U Benzodiazepines Scrn Urine Cocaine Screen U Marijuana (THC) Screen Ethyl Alcohol COVID-19 (SCOUT) COVID-19 Clin Com DS: Summary Hospital Course Hospital Course: Sree is a 27 y.o. male who carries a dx of MDD recurrent. He presented to [facility] on 06/09/22 due to SI and stated he had a plan to hang himself with an industrial extension cable tie around his neck and throw it out the window, was going to go through with on Monday. He has increased life stressors including cousin dying of overdose in 02/2022, a recent break-up from [employer] x 1 year, and financial stress.? He lives alone and works for [employer].? No previous psych tx other than OP therapy.?Denies illicit substance abuse or alcohol abuse.? Plan: Pt does not want to take medication, prefers therapy, forthcoming about his depression and SI but says he is no longer suicidal. 06/12: Pt continues to report no interest in medication, advocating for discharge, denies SI 06/13: Pt feels stable, at baseline Q15 min safety checks, CV Monitor response to medications. Monitor for safety in the milieu. Discharge on stabilization. Patient seen. Chart reviewed. Discussed with team. Obtain collateral contact info?as needed Time spent discussing smoking cessation with patient: 3 to 10 minutes Status at Discharge Functional status at discharge: independent ambulation Overall status at discharge: patient is back to baseline Time Spent with Patient Time attestation: Total time spent providing and/or coordinating discharge services: Time spent: Less than 30 minutes Discharge Plan Discharge Anticipated Discharge Date/Time: 06/13/22 17:58 Patient Disposition: Home, Self-Care Discharge Diagnosis: MDD recurrent Referrals: Bigg Dawson MD [Physician] - 1 Week Discharge Medications: No Action No Known Home Meds Discharge Orders: Discharge Order (Routine); Ordered 06/13/22 Ordered By: Camille Barron Diet: Advance to usual diet Activity on Discharge: As tolerated Stand Alone Forms: Patient Portal Discharge page Care Plan Goals: Continue psychiatric medications as prescribed and follow up with outpatient referrals and PCP. Health Concerns: Depression Plan of Treatment: Attend follow up appointments with OP psych services and PCP Patient will continue on psychotropic medication regimen for mood stability Take medications as directed A one month supply of medication has been sent to your pharmacy Crisis Team if needed [phone] Call and or return if needed Assessment: Risk assessment at time of discharge:? Patient was interviewed prior to discharge and found to be fully oriented and without any SI or HI. Patient has insight and demonstrates good judgment in terms of wanting to pursue treatment. Patient is not in imminent risk of harm to self or others and has a safety plan that includes presenting to the closest ER or calling 911 if feeling unsafe.? Patient has been observed closely by nursing and unit staff throughout admission; patient has not engaged in any behaviors that suggest dangerousness to self or others and has demonstrated appropriate behaviors and impulse control.
--- NOTE | 2022-06-13 18:25 | PC.NURSE ---
Patient alert, oriented x3. Reports he feels ready for discharge, and states that he feels grateful for all that he has learned while inpatient. Patient denies SI/HI, and denies AH/VH. Discharge instructions and belongings reviewed with patient- patient verbalized understanding, no concerns or questions reported. Patient awaiting transportation from home.
== END 2022-06-13 19:05 | disposition home or self-care (01) | DRG 751 ==
LOC: HO.ED 06-10 17:28 → HO.PADLT16 06-10 20:50
PROVIDERS: Physician Assistant; Admitting Provider Registered Nurse; Emergency Provider Emergency Medicine Emergency Medical Services; Visit Provider Registered Nurse
DX: F33.1 Major depressive disorder, recurrent, moderate (principal); R45.851 Suicidal ideations; Z20.822 Contact with and (suspected) exposure to COVID-19; Z23 Encounter for immunization
CPT/HCPCS: 36415; 80053; 80061; 80307; 81003; 82077; 82607; 82746; 83036; 83735; 84439; 84443; 85025; 87635; 90686; 99285

== ENCOUNTER 2022-09-23 15:28 | Outpatient (REF) | payer MEDICAID, SELFPAY ==
--- NOTE | ~2022-09-23 | XR_ITS ---
EXAMINATION: XR LUMBOSACRAL SPINE WITH OBLIQUES CLINICAL INFORMATION: Low back pain COMPARISON: None TECHNIQUE: AP, both oblique, and lateral views of the lumbar spine. Lateral view of the lumbosacral junction. FINDINGS: There is normal lumbar lordosis. The vertebral heights, alignment and disc heights are normal. No visible acute fracture, dislocation or subluxation seen. On oblique views there is no pars defect. There is no listhesis. The paravertebral soft tissues are normal. SI joints are symmetrical and normal. XR/XR lumbar spine 4V min IMPRESSION: Unremarkable lumbar spine exam.
== END 2022-09-23 15:29 | disposition home or self-care (01) ==
LOC: HO.XRAY 15:28
PROVIDERS: PCP Internal Medicine; Visit Provider Internal Medicine
DX: M54.50 Low back pain, unspecified (principal)
CPT/HCPCS: 72110

== ENCOUNTER 2022-10-13 07:00 | Outpatient (RCR) | payer MEDICAID, SELFPAY | END 2022-11-03 14:00 | disposition home or self-care (01) | LOC: HO.PT 07:00 | PROVIDERS: PCP Internal Medicine; Visit Provider Internal Medicine | DX: M54.50 Low back pain, unspecified (principal) | CPT/HCPCS: 97110; 97112; 97161; 97530 ==

== ENCOUNTER 2023-08-18 16:11 | Outpatient (REF) | payer MEDICAID, SELFPAY ==
[2023-08-18 18:05] LABS: Estimated Glomerular Filt Rate > 60
[2023-08-21 04:03] LABS: ~HepC Num1 0.05 S/CO (0.00-0.79); ~Hepatitis C Antibody Nonreactive (Nonreactive)
[2023-08-21 04:21] LABS: Syphilis Screen Nonreactive (Nonreactive)
[2023-08-22 12:43] LABS: HIV RNA PCR Qn Copies NOT DETECTED copies/mL (NOT DETECTED); HIV RNA PCR Qn Log Copies NOT DETECTED (NOT DETECTED)
== END 2023-08-18 16:12 | disposition home or self-care (01) ==
LOC: HO.HHCL 16:11
PROVIDERS: Visit Provider Internal Medicine
DX: Z11.3 Encounter for screening for infections with a predominantly sexual mode of transmission (principal)
CPT/HCPCS: 36415; 82565; 86780; 86803; 87536

== ENCOUNTER 2024-09-12 15:50 | Outpatient (REF) | payer MEDICAID, SELFPAY ==
--- OUTSIDE RECORDS SUMMARY | 2024-09-12 16:45 | XMS_ITS | Encounter Summary ---
Author Organization [employer] Address [address] [place] [address] Care Team Providers Care Epic Manager Name Role Phone Bigg Garza MD Primary Care Provide r Reason for Visit * Reason Comments Care Coordination CHW outreach for SDO H food needs-referral completed Encounter Details Date Type Department Care Team (Latest Contact Info) Description 08/27/2024 Patient Outreach [facility] [address] [place] [address] Bigg Garza MD [address] [place] [address] Care Coordination (CHW outreach for SDOH food needs-referral completed /) Social History Tobacco Use Types Packs/Day Years Used Date Smoking Tobacco: Never Passive Smoke Exposure: Never Smokeless Tobacco: Never Alcohol Use Standard Drinks/Week Comments Never 0 (1 standard drink = 0.6 oz pur e alcohol) Depression Answer Date Recorded Patient Health Questionnaire-9 Score 12 05/02/2024 Patient Health Questionnaire-9 Score 12 05/02/2024 Last PHQ-9: Questionnaire Data Not on file 1 Housing Stability Answer Date Recorded What is your housing situation today? I have sadia baker 09/01/[address] you li ve. Do you have problems with any of the following? None of the above 09/01/2023 Food Insecurity Answer Date Recorded Within the past 12 months, y ou worried that your food would run out before you got money to buy more: Sometimes True 2024 Within the past 12 months,th e food you bought just didn't last and you didn't have enough money to get more: Sometimes True 08/27/2024 Transportation Answer Date Recorded In the past 12 months, has l ack of transportation kept you from medical appts, meetings, work or from getting things needed for daily living? No 09/01/2023 Utilities Answer Date Recorded In the past 12 months, has t he electric, gas, oil or water company threatened to shut off services in your home? No 09/01/2023 Depression Answer Date Recorded Patient Health Questionnaire-2 Score 5 05/02/2024 Internet Access Answer Date Recorded Internet Access Q1 Yes 04/22/2024 Internet Access Q2 Not on file 04/22/2024 Sex and Gender Information Value Date Recorded Sex Assigned at Male 05/23/2022 10:35 AM EDT Legal Sex Male 10:35 AM EDT Gender Identity Male 05/23/2022 10:35 AM EDT Sexual Orientation Straight 05/23/2022 10 :35 AM EDT documented as of this encounter Progress Notes * Soy Rush - 08/27/2024 10:18 AM EST CHW Soy Rush, placed outbound call to patient for assistance with SDOH as a referral was received by the provider. Patient's name and were confirmed. Patient screened positive for the following SDOH food insecurities. CHW referral patient to the local list of pantries in the area for help. PT-1 requested was send out in behalf of patient for futures appt. Patient verbalizes understandin g, and able to agree with plan to follow up. Patient educated on extended clinic hours on Mondays through Wednesdays, and Walk-In Urgent Care Located in [facility] of [facility]. Patient provided with after-hours line for [facility], , which offer night time triage service and option to transfer to home health occupational therapist provider if needed. documented in this encounter Plan of Treatment Upcoming Encounters Date Type Department Care Team (Late st Contact Info) Description 11/05/2024 2:30 PM EDT Office Visit [facility] [address] [place] [address] Bigg Garza MD [address] [place] [address] documented as of this encounter Visit Diagnoses Not on filedocumented in this encounter Additional Health Concerns Assessment Noted Time PHQ-9 Depression Total Score: 12 024 3:06 PM EDT documented as of this encounter Care Teams Epic Manager Relationship Specialty Start Date End Date Bigg Garza MD [address] [place] [address] PCP - General Internal Medicine 10/16/18 documented as of this encounter
--- OUTSIDE RECORDS SUMMARY | 2024-09-12 16:45 | XMS_ITS | Clinical Summary ---
Author Organization [facility] Address [address] [place] [address] Care Team Providers Care Inspecting Engineer Name Role Phone Unavailable Primary Care Provider Unavailabl e Source Comments PLEASE NOTE, if this patient is a minor, it may be UNLAWFUL to discuss sensitive information that is contained in these records (such as FAMILY PLANNING, MENTAL HEALTH or SUBSTANCE ABUSE) with the minor patient's parent or other person without the patient's specific authorization.[facility] Medications doxycycline (ADOXA) 100 mg tablet Take 100 mg by mouth once daily 2 tablets. 2 tablet Orally Taken as soon as possible after sex, ideally within 24 hours and no later than 72 hours after sex. No more than 200 mg should be taken within a 24-hour period. for 15 day Instructions: 2 tablets. 2 tablet Orally Taken as soon as possible after sex, ideally within 24 hours and no later than 72 hours after sex. No more than 200 mg should be taken within a 24-hour period. for 15 day 02/27/2024 Active DESCOVY 200-25 mg tab Take 200 mg by mouth once daily 05/25/2023 Active escitalopram (LEXAPRO) 10 mg tabletIndicatio ns: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) Take 1 Tablet by mouth once daily for 30 days 30 Tablet 2 08/08/2024 Active Active Problems Problem Noted Date Diagnosed Date Class 1 obesity 06/13/2024 On pre-exposure prophylaxis for HIV 05/02/2024 Routine physical examination 10/31/2023 Decreased visual acuity 08/30/2022 Low back pain, non-specific 08/30/2022 Wrist pain, acute, right 08/30/2022 Class 2 obesity due to exces s calories without serious comorbidity in adult 08/28/2022 Keloid skin disorder 08/28/2022 Moderate episode of recurren t major depressive disorder (HCC-CMS) 08/28/2022 Assessment & Plan (08/08/2024 3:58 PM EST): Major Depressive Disorder: A:Symptoms under reasonable control Plan: Continue Lexapro 10 mg daily Follow-up appointment scheduled in Three month or PRN Continue ongoing therapy Assessment & Plan (07/18/2024 9:39 AM EST): Assessment and Plan: Major Depressive Disorder: A:Symptoms Improving Plan: Continue Lexapro 10mg daily Follow-up appointment scheduled in one month Continue ongoing therapy Assessment & Plan (07/02/2024 1:38 PM EST): Assessment and Plan: Major Depressive Disorder: Symptoms: depressed mood, anhedonia, sleep disturbance, poor appetite, feelings of worthlessness, suicidal ideation Plan: Restart Lexapro 10mg daily Follow-up appointment scheduled in one month Continue ongoing therapy Monitor for suicidal ideation Emergency plan in place if needed Patient educated about: Potential side effects of Lexapro, including initial GI discomfort Increased risk of suicidal ideation with SSRI initiation, particularly in patients under 24 Instructions to discontinue medication and seek immediate care if experiencing increased suicidal thoughts Importance of medication compliance Follow-up appointment scheduled for at 4 PM Emergency resources if needed Encounters Date Type Department Care Team Description 08/08/2024 3:30 PM EST Behavioral Health Visit [facility] [address] [place] [phone] Jess Morin APRN 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) 07/11/2024 4:00 PM EST Behavioral Health Visit [facility] [address] [place] [phone] Jess Morin APRN 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) (Primary Dx) 06/13/2024 3:30 PM EST Behavioral Health Visit [facility] [address] [place] [phone] Jess Morin APRN 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) (Primary Dx) from Last 3 Months Immunizations Name Administration Dates Next Due DTAP 12/31/2001, 9,1997,09/29,1997 DTAP (7+)Non Interface 09/29/2008 Flu, Multi Dose 0.5 ML 04/04/2019 Flu, Preservative Free 05/24/2023,2021,05/26/2021,06/23,10/16/2018 HPV 9 (Gardasil) 07/27/2015 HPV, QUADRIVALENT 05/28/2014 Hep B, Unspecified 1997,1997, 997 INFLUENZA, SEASONAL, INJECTABLE 07/27/2015,05/28,06/28/2006 INFLUENZA, SEASONAL, INJECTA BLE, PRESERVATIVE FREE 05/02/2024 IPV 12/31/2001, 9,1997,08/04 Influenza Virus Vaccine (FLU MIST), Live Intranasal 06/08/2010 MENINGOCOCCAL ACWY, UNSPECIFIED 09/29/2008 MENINGOCOCCAL MCV4P (MENACTRA) 07/27/2015 MMR (MMR II/Priorix) 12/31/2001,03/25/1998 PPD 11/18/2022 TDAP 09/29/2008 Td(adult),2 Lf tetanus toxoid,preservative free 02/11/2019 Varicella, Live Vaccine 09/29/2008,06/10/1999 Family History Medical History Relation Name Comments No Known Problems Father Diabetes Paternal Grandmother Heart Problems Paternal Grandmother Relation Name Status Comments Father Alive Paternal Grandmother Social History Tobacco Use Types Packs/Day Years Used Date Smoking Tobacco: Never Smokeless Tobacco: Never Tobacco Cessation:Counseling Given: No Alcohol Use Standard Drinks/Week Comments Not Asked 0 (1 standard drink = 0.6 oz pur e alcohol) once per month Social Connections Answer Date Recorded Connectedness 0 05/10/2024 Financial Resource Strain Answer Date R ecorded Financial Resource Strain 0 2023 Stress Answer Date Recorded Stress 0 05/10/2024 Physical Activity Answer Date Recorded Physical Activity 0 05/10/2024 Food Insecurity Answer Date Recorded Food 0 05/10/2024 Transportation Needs Answer Date Record ed Transportation 0 05/10/2024 Housing Stability Answer Date Recorded Housing 0 05/10/2024 Safety and Environment Answer Date Bishnu rded Safety 0 05/10/2024 Utilities Answer Date Recorded Utilities 0 05/10/2024 Employment Answer Date Recorded Stress 0 05/10/2024 Sex and Gender Information Value Date Recorded Sex Assigned at Male 05/10/2024 9:29 AM PDT Legal Sex Male 9:29 AM PDT Gender Identity Male 05/10/2024 9:29 AM PDT Sexual Orientation Not on file Plan of Treatment Upcoming Encounters Date Type Department Care Team (Late st Contact Info) Description 10/31/2024 3:30 PM EDT Behavioral Health Visit [facility] [address] [place] [phone] Jess Morin, GARBAGE PICK UP WORKER [address] [facility] [place] [address] Health Maintenance Due Date Last Done Comments Depression Monitoring 1997 Hepatitis C Screening 1997 Hypertension Screening (#1) 2015 Alcohol and Drug Screen 07/24/2024 Tobacco Screening 06/13/2025 06/13/2024 Imm-DTaP/Tdap/Td (9 - Td or Tdap) 02/11/2029 02/11/2019, 09/29/2008, 09/29/2008, Additional history exists Imm-Hepatitis B Completed 1997, 07/24, 1997 HIV Screening Completed 08/18/2023 [id number] Completed 05/02/2024, 05/25, 05/26/2021 Imm-Influenza Completed 05/02/2024, 1107/2022, 06/13/2022, Additional history exists Insurance [place] [employer]
--- OUTSIDE RECORDS SUMMARY | 2024-09-12 16:45 | XMS_ITS ---
Author Organization [facility] Address [address] [place] [phone] Care Team Providers Care Bakery Clerk Name Role Phone KAREN LEBRONSA Unavailable [phone] REASON FOR VISIT PrEP labs and refill Medications Medication SIG (Take, Route, Fr equency, Duration) Notes Start Date End Date Status Descovy 200-25 MG 1 tablet Orally Once a day for 90 days Active Social History Sex Assigned At : Social History Observation Description Sex Assigned At Male Encounters Encounter Location Date Provider Diagnosis [place] [facility] [place], [place] [phone] 06/03/2024 ANALIA LEBRON Plan Of Treatment Medication Medication Name Sig Start Date Stop Date Notes Descovy 200-25 MG 1 tablet Orally Once a day for 90 days Next Appt Details Provider Name:ANALIA LEBRON , 09/23/2024 04:00:00 PM, [address] [place] [address], [facility], [place], [place], [phone], Progress Notes * Ramakrishna SAMOB:1995 (29 yo M)Acc No.[id number]:06/03/2024 Patient:?Edgar SAMun :1995???Age:29 Y???Sex:Male Address:[address] [place] [address], [phone] * Refills? Continue Descovy Tablet, 200-25 MG, 90, 1 tablet Orally Once a day, 90 days, Refills=0 Subjective: * Chief Complaints: * ???PrEP labs and refill * Medical History:? * Surgical History:? * Hospitalization/Major Diagno stic Procedure:? * Medications:? * Allergies:?no[Allergies Veri fied] Objective: * Vitals:? * Physical Examination:? Assessment: Plan: * Treatment: * Procedure Codes:? * true * Date:? Generated for Omer mena/Johnathan/Montserrat on:?09/12/2024 09:15 AM EST
--- OUTSIDE RECORDS SUMMARY | 2024-09-12 16:45 | XMS_ITS | Encounter Summary ---
Author Organization [employer] [facility] Address [address] [facility] 7t [place] [address] Care Team Providers Care Residential Property Manager Name Role Phone Bigg Garza MD Primary Care Provide r Encounter Details Date Type Department Care Team (Latest Contact Info) Description 09/12/2024 Travel Social History Tobacco Use Types Packs/Day Years Used Date Smoking Tobacco: Never Passive Smoke Exposure: Never Smokeless Tobacco: Never Alcohol Use Standard Drinks/Week Comments Never 0 (1 standard drink = 0.6 oz pur e alcohol) Depression Answer Date Recorded Patient Health Questionnaire-9 Score 0 09/12/2024 Patient Health Questionnaire-9 Score 0 09/12/2024 Last PHQ-9: Questionnaire Data Not on file 0 09/12/2024 Housing Stability Answer Date Recorded What is [...] Answer Date Recorded Patient Health Questionnaire-2 Score 0 09/12/2024 Internet Access Answer Date Recorded Internet Access Q1 Yes 04/22/2024 Internet Access Q2 Not on file 04/22/2024 Sex and Gender Information Value Date Recorded Sex Assigned at Male 05/23/2022 10:35 AM EDT Legal Sex Male 10:35 AM EDT Gender Identity Male 05/23/2022 10:35 AM EDT Sexual Orientation Straight 05/23/2022 10 :35 AM EDT documented as of this encounter Plan of Treatment Upcoming Encounters Date Type Department Care Team (Late st Contact Info) Description 11/05/2024 2:30 PM EDT Office Visit [facility] [address] [place] [address] Bigg Garza MD [address] [place] [address] documented as of this encounter Visit Diagnoses Not on filedocumented in this encounter Additional Health Concerns Assessment Noted Time PHQ-9 Depression Total Score: 0 09/12/19 25 3:05 PM EST documented as of this encounter Care Teams Residential Property Manager Relationship Specialty Start Date End Date Bigg Garza MD [address] [place] [address] PCP - General Internal Medicine 10/16/18 documented as of this encounter
--- OUTSIDE RECORDS SUMMARY | 2024-09-12 16:45 | XMS_ITS | Encounter Summary ---
Author Organization [employer] [facility] Address [address] [place] [address] 7 [place] [address] Care Team Providers Care Advisory Services Associate Name Role Phone Bigg Garza MD Primary Care Provide r Reason for Referral * Consultation (Routine) - Authorized Specialty Diagnoses / Procedures Referred By Contshai t Referred To Contact Family Medicine Diagnoses On pre-exposure prophylaxis for HIV Bigg Garza MD [address] [place] [phone] Phone: tel: fax: Referral ID Status Reason Start Date Expiration Date Visits Requested Visits Authorized [id number] Authorized Specialty Services Required 09/12/2024 09/12/2025 1 1 Reason for Visit * Reason Comments Depression Encounter Details Date Type Department Care Team ([facility] st Contact Info) Description 09/12/2024 3:00 PM EST Office Visit [facility] [address] [place] [phone] Bigg Garza MD [address] [place], [place] [phone] Moderate episode of recurrent major depressive disorder (CMS/HCC) (Primary Dx); On pre-exposure prophylaxis for HIV; Class 2 obesity due to excess calories without serious comorbidity with body mass index (BMI) of 36.0 to 36.9 in adult; Dietary counseling; Exercise counseling; Elevated blood pressure reading Social History Tobacco Use Types Packs/Day Years [...] t he electric, gas, oil or water [employer] threatened to shut off services in your [...] AM EDT documented as of this encounter Last Filed Vital Signs Vital Sign Reading Time Taken Comments Blood Pressure 141/78 09/12/2024 3:03 PM EST Pulse 85 09/12/2024 3:03 PM EST Temperature 36.3 ??C (97.3 ??F) 09/12/2024 3:03 PM ES T Respiratory Rate 20 09/12/2024 3:03 PM EST Oxygen Saturation 98% 09/12/2024 3:03 PM EST Inhaled Oxygen Concentration - - Weight 104 kg (228 lb 9.6 oz) 09/12/2024 3:03 PM EST Height 167.6 cm (5' 6 ) 09/12/2024 3:03 PM EST Body Mass Index 36.9 09/12/2024 3:03 PM EST documented in this encounter Progress Notes * Bigg Prasad MD - 09/12/2024 3:00 PM EST SUBJECTIVE Sree Sam is a 29 y.o. male who presents for Depression. Patient us here for a follow up, also he is wondering if we could refill his PrEP and his antidepressants since both of his appointments to get those medications were moved and he is running out. He feels good otherwise Depression Visit Type: follow-up Patient is not experiencing: shortness of breath. Review of Systems Constitutional: Negative for fever. HENT: Negative for sore throat. Respiratory: Negative for cough and shortness of breath. Cardiovascular: Negative for chest pain. Gastrointestinal: Negative for abdominal pain. Genitourinary: Negative for dysuria, genital sores and penile discharge. Neurological: Negative for headaches. Psychiatric/Behavioral: Positive for depression. No Known Allergies OBJECTIVE Vitals: 09/12/24 1503 BP: (!) 141/78 BP Location: Left arm Patient Position: Sitting BP Cuff Size: Large adult Pulse: 85 Resp: 20 Temp: 97.3 ??F (36.3 ??C) TempSrc: Temporal SpO2: 98% Weight: 228 lb 9.6 oz (104 kg) Height: 5' 6 (1.676 m) Physical Exam Vitals reviewed. Constitutional: Appearance: Normal appearance. HENT: Head: Normocephalic and atraumatic. Right Ear: External ear normal. Left Ear: External ear normal. Nose: Nose normal. Mouth/Throat: Mouth: Mucous membranes are moist. Eyes: Conjunctiva/sclera: Conjunctivae normal. Cardiovascular: Rate and Rhythm: Normal rate and regular rhythm. Pulmonary: Effort: Pulmonary effort is normal. Breath sounds: Normal breath sounds. Skin: General: Skin is warm. Neurological: Mental Status: He is alert. Mental status is at baseline. Assessment/Plan Problem List Items Addressed This Visit Moderate episode of recurrent major depressive disorder (CMS/HCC) - Primary Pt here fort a follow up.Doing well Previously evaluated at our psychopharmacology clinic, Last seen 11/2022 back then Hank blanca hadrecommended Lexapro 10 mg daily Back then pt had reported improved mood, No other S/E. He stopped Lexapro, previous visit wanted to re establish care with a therapist. Pt is seeing Claudia Carver at [facility] and [facility] for Psych prescribing. Pt ran out of Lexapro, will refill [place] [facility] [place] c/o depression and suicidal ideation. Pt evaluated by the Crisis team and was eventually admitted. Pt told me he had a good stay, He was evaluated by a psychiatrist and he declined any type of Medication. He had been following with a psychotherapist Claudia Carver via zoom once a week, no longer doing that. Interested in starting services again. Relevant Medications escitalopram (Lexapro) 10 MG tablet Other Relevant Orders Basic Metabolic Panel On pre-exposure prophylaxis for HIV On Descovy from [facility] and [facility]oxy[facility] Pt would like to get his PrEP from us, I referred him to our PrEP navigator. Pt is sexually active.He still has several pills left over Pt to have his labs done today and will refill scrip for Descovy once labs back. Script for Doxypepsent. Relevant Medications doxycycline (Adoxa) 100 MG tablet Other Relevant Orders Syphilis Screen HIV-1/2 Antigen and Antibodies, Fourth Generation, with Reflexes Hepatitis C Antibody with Reflex to HCV, RNA, Quantitative, Real-Time PCR Chlamydia/N. Gonorrhoeae RNA, TMA, Urine Chlamydia/N. Gonorrhoeae RNA, TMA, Throat Trichomonas RNA (Urine/Vaginal) Referral to [facility] Infectious Disease (HIV & Hep C) Class 2 obesity due to excess calories without serious comorbidity in adult Patient has been counseled and educated about diet and exercise in the past Elevated blood pressure reading First time, mild 3 months follow up for repeat Other Visit Diagnoses Dietary counseling Exercise counseling documented in this encounter Miscellaneous Notes * Assessment & Plan Note - Bigg Prasad MD - 09/12/2024 3:38 PM EST Associated Problem(s): Elevated blood pressure reading First time, mild 3 months follow up for repeat * Assessment & Plan Note - Bigg Prasad MD - 09/12/2024 3:28 PM EST Associated Problem(s): On pre-exposure prophylaxis for HIV On Descovy from [facility] and DoxyPep Pt would like to get his PrEP from us, I referred him to our PrEP navigator. Pt is sexually active.He still has several pills left over Pt to have his labs done today and will refill scrip for Descovy once labs back. Script for Doxypepsent. * Assessment & Plan Note - Bigg Prasad MD - 09/12/2024 3:07 PM EST Associated Problem(s): Moderate episode of recurrent major depressive disorder (CMS/HCC) Pt here fort a follow up.Doing well Previously evaluated at our psychopharmacology clinic, Last seen 11/2022 back then Hank blanca hadrecommended Lexapro 10 mg daily Back then pt had reported improved mood, No other S/E. He stopped Lexapro, previous visit wanted to re establish care with a therapist. Pt is seeing Claudia Carver at [facility] and [facility] for Psych prescribing. Pt ran out of Lexapro, will refill [place] [facility] [place] with c/o depression and suicidal ideation. Pt evaluated by the Crisis team and was eventually admitted. Pt told me he had a good stay, He was evaluated by a psychiatrist and he declined any type of Medication. He had been following with a psychotherapist Claudia Carver via zoom once a week, no longer doing that. Interested in starting services again. * Assessment & Plan Note - Bigg Prasad MD - 09/12/2024 3:06 PM EST Associated Problem(s): Class 2 obesity due to excess calories without serious comorbidity in adult Patient has been counseled and educated about diet and exercise in the past documented in this encounter Plan of Treatment Upcoming Encounters Date Type Department Care Team (Late st Contact Info) Description 11/05/2024 2:30 PM EDT Office Visit [facility] [address] [place] [address] Bigg Garza MD [address] [place], [place] [phone] Scheduled Orders Name Type Priority Associated Diagnoses Orde r Schedule Syphilis Screen Lab Routine On pre-exposure prophylaxis for HIV Expected: 09/12/2024 (Approximate), Expires: 09/12/2025 HIV-1/2 Antigen and Antibodies, Fourth Generation, with Reflexes Lab Routine On pre-exposure prophylaxis for HIV Expected: 09/12/2024 (Approximate), Expires: 09/12/2025 Hepatitis C Antibody with Reflex to HCV, RNA, Quantitative, Real-Time PCR Lab Routine On pre-exposure prophylaxis for HIV Expected: 09/12/2024 (Approximate), Expires: 09/12/2025 Chlamydia/N. Gonorrhoeae RNA, TMA, Urine Microbiology Routine On pre-exposure prophylaxis for HIV Ordered: 09/12/2024 Chlamydia/N. Gonorrhoeae RNA, TMA, Throat Microbiology Routine On pre-exposure prophylaxis for HIV Expected: 09/12/2024 (Approximate), Expires: 09/12/2025 Trichomonas RNA (Urine/Vaginal) Lab Routine On pre-exposure prophylaxis for HIV Ordered: 09/12/2024 Basic Metabolic Panel Lab Routine Moderate episode of recurrent major depressive disorder (CMS/HCC) Ordered: 09/12/2024 Scheduled Referrals Name Type Priority Associated Diagnoses Orde r Schedule Referral to [facility] Infectious Disease (HIV & Hep C) Outpatient Referral Routine On pre-exposure prophylaxis for HIV Expected: 09/12/2024 (Approximate), Expires: 09/12/2025 documented as of this encounter Visit Diagnoses Diagnosis Moderate episode of recurrent major depressive disorder (CMS/HCC)- Primary On pre-exposure prophylaxis for HIV Class 2 obesity due to excess calories without serious comorbidity with body mass index (BMI) of 36.0 to 36.9 in adult Dietary counseling Dietary surveillance and counseling Exercise counseling Elevated blood pressure reading Elevated blood pressure reading without diagnosis of hypertension documented in this encounter Additional Health Concerns Assessment Noted Time PHQ-9 Depression Total Score: 0 09/12/19 25 3:05 PM EST documented as of this encounter Care Teams Advisory Services Associate Relationship Specialty Start Date End Date Bigg Garza MD [address] [place] [phone] PCP - General Internal Medicine 10/16/18 documented as of this encounter
--- OUTSIDE RECORDS SUMMARY | 2024-09-12 16:45 | XMS_ITS ---
Author Organization [facility] Address [address] [place] [phone] Care Team Providers Care Museum Specialist Name Role Phone LOURDES MERAZ Unavailable [phone] REASON FOR VISIT PrEP F/U Social History Sex Assigned At : Social History Observation Description Sex Assigned At Male Encounters Encounter Location Date Provider Diagnosis [facility] [address] [place] [address] [place], [place] [phone] 08/27/2024 LOURDES MERAZ Plan Of Treatment Next Appt Details Provider Name:LOURDES MERAZ , 09/23/2024 04:00:00 PM, [address] [place] [address], [address], [place], [place], [phone], Progress Notes * SAM EdgarWillOB:1995 (29 yo M)Acc No.[id number]:08/27/2024 Progress Notes Patient:?SAMEdgarun Provider:?Lourdes Meraz NP :1995???Age:29 Y???Sex:Male Mack e:08/27/2024 Address:[address] [place], [place] [address], [phone] Subjective: * Chief Complaints: * ???1. PrEP F/U. * Medical History:? Objective: * Vitals:? Assessment: Plan: * Treatment: * Billing Information: * Visit Code:? * Procedure Codes:? * Electronic signature of KAREN MERAZ NP on 09/12/2024 at 09:15 AM EST Sign off status: Pending * Provider:Elenita Meraz NP Date:? 025 Generated for Omer mena/Johnathan/Geovannaitting on:?09/12/2024 09:15 AM EST
--- OUTSIDE RECORDS SUMMARY | 2024-09-12 16:45 | XMS_ITS | Encounter Summary ---
Author Organization [employer] Address [address] [facility] 7 [place] [address] Care Team Providers Care Road Oiling Truck Driver Name Role Phone Bigg Garza MD Primary Care Provide r Reason for Visit * Reason Comments Pre-visit Planning SDOH screening posit julian and Tobacco screening negative Encounter Details Date Type Department Care Team ([facility] st Contact Info) Description 08/27/2024 Patient Outreach [facility] [address] [place] [address] Bigg Garza MD [address] [place], [place] [phone] Pre-visit Planning (SDOH screening positive and Tobacco screening negative) Social History Tobacco Use Types Packs/Day Years [...] as of this encounter Progress Notes * Dee Torres - 08/27/2024 9:08 AM EST LAINE Oh placed successful outbound call to patient for pre-visit planning. Patient name and confirmed. Patient confirms appt date and time, and has transportation arrangements. Biggest concern for appointment at this time is no concerns.. Patient advised to bring to appointment a photo id and insurance card. Appropriate screenings completed in anticipation of appointment. SDOH positive. Patient looking for assistance with Food insecurities: Sometimes. Referral will be placed. documented in this encounter Plan of Treatment Upcoming Encounters Date Type Department Care Team (Late st Contact Info) Description 11/05/2024 2:30 PM EDT Office Visit [facility] [address] [place], [place] [phone] Bigg Garza MD [address] [place] [address] documented as of this encounter Visit Diagnoses Not on filedocumented in this encounter Additional Health Concerns Assessment Noted Time PHQ-9 Depression Total Score: 12 024 3:06 PM EDT documented as of this encounter Care Teams Road Oiling Truck Driver Relationship Specialty Start Date End Date Bigg Garza MD [address] [place] [address] PCP - General Internal Medicine 10/16/18 documented as of this encounter
--- OUTSIDE RECORDS SUMMARY | 2024-09-12 16:45 | XMS_ITS ---
Author Organization [facility] Address [address] [phone] Care Team Providers Care Veterinary Anatomist Name Role Phone LOURDES MERAZ Unavailable [phone] Allergies No Known Allergies Results Component Value Reference Range Notes T pallidum Screening [place] -[id number] Reviewed date:06/04/2024 10:18:40 AM Interpretation:Negative Performing Lab:[facility], [address], [address], [place], Phone - [phone], Director - [facility] Notes/Report: T pallidum Antibodies Non Reactive Non Reactive HIV Ab/p24 Ag with Reflex-[id number] Reviewed date:06/04/2024 12:53:53 PM Interpretation:Negative Performing Lab:[facility], [address], [address], [place], Phone - [phone], Director - [facility] Notes/Report: HIV Ab/p24 Ag Screen Non Reactive Non Reactive HIV-1/HIV-2 antibodies and HIV-1 p24 antigen were NOT detected. There is no laboratory evidence of HIV infection. HIV Negative Ct, Ng, Trich vag by SCOUT-[id number] Reviewed date:06/06/2024 09:52:11 AM Interpretation:Negative Performing Lab:[facility], [address], [address], [place], Phone - [phone], Director - [facility] Notes/Report: Chlamydia by SCOUT Negative Negative Gonococcus by SCOUT Negative Negative Trich vag by SCOUT Negative Negative Lipid Panel-[id number] Reviewed date:06/04/2024 10:58:11 AM Interpretation:LDL elevated Performing Lab:[facility], [address] [facility], Phone - [phone], Director - Chelsie Notes/Report: Cholesterol, Total 172 100-199 mg/dL Triglycerides 88 0-149 mg/dL HDL Cholesterol 41 >39 mg/dL VLDL Cholesterol Igor 16 5-40 mg/dL LDL Chol Calc ([facility]) 115 0-99 mg/dL REASON FOR VISIT PrEP Follow-up Visit Medications Medication SIG (Take, Route, Frequency, Duration) Notes Start Date End Date Status Doxycycline Monohydrate 100 MG 2 tablet Orally Taken as soon as possible after sex, ideally within 24 hours and no later than 72 hours after sex. No more than 200 mg should be taken within a 24-hour period. for 15 days 02/27/2024 Active Descovy 200-25 MG 1 tablet Orally Once a day for 30 days Active Social History Sex Assigned At : Social History Observation Description Sex Assigned At Male Vital Signs Blood pressure systolic 132 mm Hg 06/03/20 24 Blood pressure diastolic 76 mm Hg 024 Height 65 in 06/03/2024 Weight 217.3 lbs 06/03/2024 BMI 36.16 kg/m2 06/03/2024 Encounters Encounter Location Date Provider Diagnosis [facility] [address] [place] [address] [place], [place] [phone] 06/03/2024 LOURDES MERAZ Encounter for screen ing for human immunodeficiency virus [HIV] Z11.4 ; Encounter for HIV pre-exposure prophylaxis Z29.81 ; Encounter for screening for infections with a predominantly sexual mode of transmission Z11.3 ; Other problems related to lifestyle Z72.89 and Other longterm (current) drug therapy Z79.899 Assessments Encounter Date Diagnosis (ICD Code) Assessment Notes Treatment Notes Treatment Clinical Notes Section Notes 06/03/2024 Encounter for screening for human immunodeficiency virus [HIV] (ICD-10 - Z11.4) Need 2 out of 3 Sections from A-C Section A) Problems (only need one from below) Two or more self-limited or minor programs Section B) Data (at least one of the following categories in this section) Category 1: (Choose 2 of the following): Order unique tests Review test results (each unique test counts as one) Category 2: Assessment requiring an independent historian Section C) Risk Document low risk of morbidity/mort ality 06/03/2024 Encounter for HIV pre-exposure prophylaxis (ICD-10 - Z29.81) PrEP reduces the risk of getting HIV from sex by about 99% when taken as prescribed. Among people who inject drugs, it reduces the risk by at least 74% when taken as prescribed. Once you start PrEP, you will need to take PrEP every day. PrEP is much less effective when it is not taken every day. Continue to use condoms while taking PrEP. Even though daily PrEP can greatly reduce your risk of HIV, it does not protect against other STDs, such as gonorrhea, chlamydia, or syphilis. Combining condom use with PrEP will further reduce your risk of HIV, as well as protect you from other STDs. You must also take an HIV test every 3 months while taking PrEP, so you will have regular follow-up visits prior to refill authorization s. Advised clt to follow up if having trouble taking PrEP every day or if clt wants to stop taking PrEP. Need 2 out of 3 Sections from A-C Section A) Problems (only need one from below) Two or more self-limited or minor programs Section B) Data (at least one of the following categories in this section) Category 1: (Choose 2 of the following): Order unique tests Review test results (each unique test counts as one) Category 2: Assessment requiring an independent historian Section C) Risk Document low risk of morbidity/mort ality 06/03/2024 Encounter for screening for infections with a predominantly sexual mode of transmission (ICD-10 - Z11.3) Reviewed routine screening, safe sex and consistent barrier protection. Aware of window period for testing and testing options. Discussed symptoms that would warrant further evaluation and follow-up care Need 2 out of 3 Sections from A-C Section A) Problems (only need one from below) Two or more self-limited or minor programs Section B) Data (at least one of the following categories in this section) Category 1: (Choose 2 of the following): Order unique tests Review test results (each unique test counts as one) Category 2: Assessment requiring an independent historian Section C) Risk Document low risk of morbidity/mort ality 06/03/2024 Other problems related to lifestyle (ICD-10 - Z72.89) Need 2 out of 3 Sections from A-C Section A) Problems (only need one from below) Two or more self-limited or minor programs Section B) Data (at least one of the following categories in this section) Category 1: (Choose 2 of the following): Order unique tests Review test results (each unique test counts as one) Category 2: Assessment requiring an independent historian Section C) Risk Document low risk of morbidity/mort ality 06/03/2024 Other oil heaterman (current) drug therapy (ICD-10 - Z79.899) Need 2 out of 3 Sections from A-C Section A) Problems (only need one from below) Two or more self-limited or minor programs Section B) Data (at least one of the following categories in this section) Category 1: (Choose 2 of the following): Order unique tests Review test results (each unique test counts as one) Category 2: Assessment requiring an independent historian Section C) Risk Document low risk of morbidity/mort ality Plan Of Treatment Treatment Notes Assessment Notes Encounter for HIV pre-exposure prophylax is PrEP reduces the risk of getting HIV from sex by about 99% when taken as prescribed. Among people who inject drugs, it reduces the risk by at least 74% when taken as prescribed. Once you start PrEP, you will need to take PrEP every day. PrEP is much less effective when it is not taken every day. Continue to use condoms while taking PrEP. Even though daily PrEP can greatly reduce your risk of HIV, it does not protect against other STDs, such as gonorrhea, chlamydia, or syphilis. Combining condom use with PrEP will further reduce your risk of HIV, as well as protect you from other STDs. You must also take an HIV test every 3 months while taking PrEP, so you will have regular follow-up visits prior to refill authorizations. Advised clt to follow up if having trouble taking PrEP every day or if clt wants to stop taking PrEP. Encounter for screening for infections with a predominantly sexual mode of transmission Reviewed routine screening, safe sex and consistent barrier protection. Aware of window period for testing and testing options. Discussed symptoms that would warrant further evaluation and follow-up care Next Appt Details Follow Up: 3 Months, Reason: PrEP F/U Provider Name:LOURDES MERAZ , 09/23/2024 04:00:00 PM, [address] [place] [address], [facility], [place], [place], [phone], Progress Notes * Ramakrishna SAMOB:1995 (29 yo M)Acc No.[id number]:06/03/2024 Progress Notes Patient:?Sree SAM Provider:?Lourdes Meraz NP :1995???Age:29 Y???Sex:Male Mack e:06/03/2024 Address:[place], [id number] Subjective: * Chief Complaints: * ???PrEP Follow-up Visit * HPI: ???Visit Narrative:?Clt presenting for routine PrEP visit. Denies issue with side effects or daily compliance of meds. New AFAB partner since last tested, no known STI exposure. Denies symptoms of acute HIV infection, liver disease or lactic acidosis. Has used DoxyPEP a few times, tolerated well. ?Reason for the visit:?PrEP F/U.?Last date of UPI:?03/2024.? * ROS:?Hepatology:?Jaundice?Denies.?Dark Urine?Denies.?Light Colored Stools?Denies.?Upper Abdominal Pain?Denies.?General/Constitutional:?Denies?Chills.?Denies?Fatigue.?Denies?Fever.?Denies?Headache.?Denies?Light headedness.?Denies?Night sweats.?Denies?Weight loss.?Allergy/Immunology:?Denies?Enlarged Lymph Nodes.?Gastrointestinal:?Denies?Decreased appetite.?Denies?Diarrhea.?Denies?Nausea.?Denies?Stomach problems.?Denies?Vomiting.?Denies?Weight loss.?Musculoskeletal:?Denies?Muscle aches.?Denies?Painful joints.?Denies?Weakness.?Skin:?Denies?Rash.?Neurologic:?Denies?Dizziness.?Psychiatric:?Denies?Malaise.? * Medical History:? 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 control:?condoms.?Sexual activity:?currently sexually active, with women.?Sexually Transmitted Diseases (STDs):?Gonorrhea, Trichomoniasis (Trich).? * Surgical History:?keloids * Hospitalization/Major Diagno stic Procedure:?Denies Past Hospitalization * Family History:? Grandmother paternal-diabetes, HBP Father-HBP. * Social History:?Food Access:?Food Access?The Client's current access to food is?Secure Food Access ???Housing:?Housing?The client's current living situation is:?stable housing ???Reproductive Life Plan:?Reproductive Life Plan?Do you want to have children??No ???Sexual History:?Sexual History?Sexual History Reviewed:?Partners, Practices, Protection/Past STIs ?Currently sexually active??Yes ?Sexually active with:?Women ?Number of female partners?1 ?Your sexual activities include:?oral intercourse, vaginal intercourse ?Do you use condoms??No ?Number of partners in past 3 months:?1 ?Number of partners in past year:?2 ?Does your partner(s) currently have any STIs??No ???HIV Risk Assessment:?Additional Questions?Is an HIV Risk Assessment being conducted??Yes ?Have you been tested for HIV before??Yes ?Did you have a blood transfusion prior to 1985??No ?Do you have an unlicensed body piercing or tattoo??Yes ???PrEP for HIV:?PrEP for HIV?Is the client interested in beginning/continuing PrEP for HIV??No ???Relationships:?Relationships?Has the client experienced any of the following:?Client has never experienced harmful relationships ???Human Trafficking:?Human Trafficking?Experienced:?No ???Tobacco Use:?Tobacco Use?Do you/have you used tobacco??No ?Tobacco Smoking Status?Never smoker ???Drugs/Alcohol:?Drug/Alcohol Use?Do you or have you used drugs??No ?Do you or have you used alcohol??No ???Counseling Provided:?Counseling Provided?Please indicate the length of time, in minutes, that counseling was provided.?5 ?Counseling Was Provided By:?naoriv * Medications:?TakingDoxycycli ne Monohydrate 100 MG Tablet 2 tablet Orally Taken as soon as possible after sex, ideally within 24 hours and no later than 72 hours after sex. No more than 200 mg should be taken within a 24-hour period. Descovy 200-25 MG Tablet 1 tablet Orally Once a day Medication List reviewed and reconciled with the patientTaking Doxycycline Monohydrate 100 MG Tablet 2 tablet Orally Taken as soon as possible after sex, ideally within 24 hours and no later than 72 hours after sex. No more than 200 mg should be taken within a 24-hour period. Taking Descovy 200-25 MG Tablet 1 tablet Orally Once a day Medication List reviewed and reconciled with the patient * Allergies:?N.K.D.A.no[Allerg ies Verified] Objective: * Vitals:?BP:132/76mm Hg, Ht: 65 in, Wt:217.3lbs, BMI:36.16Index, Ht-cm: 165.1, Wt-k.57. * Examination: ???General Examination: ?GENERAL APPEARANCE:?pleasant, in no acute distress.? Assessment: * Assessment: 1.?Encounter for HIV pre-exp osure prophylaxis - Z29.81 (Primary)???2.?Encounter for screening for human immunodeficiency virus [HIV] - Z11.4???3.?Encounter for screening for infections with a predominantly sexual mode of transmission - Z11.3?? 4.?Other problems related to lifestyle - Z72.89???5.?Other oil heaterman (current) drug therapy - Z79.899??? Need 2 out of 3 Sections fro m A-C Section A) Problems (only need one from below) Two or more self-limited or minor programs Section B) Data (at least one of the following categories in this section) Category 1: (Choose 2 of the following): Order unique tests Review test results (each unique test counts as one) Category 2: Assessment requiring an independent historian Section C) Risk Document low risk of morbidity/mortality Plan: * Treatment: 2.?Encounter for screening f or human immunodeficiency virus [HIV]?LAB: HIV Ab/p24 Ag with Reflex-[id number] (Collection Date & Time - 06/03/2024 06:48 PM) 3.?Encounter for screening f or infections with a predominantly sexual mode of transmission?LAB: T pallidum Screening [place]-[id number] (Collection Date & Time - 06/03/2024 06:48 PM) ?LAB: Ct, Ng, Trich vag by [id number] (Collection Date & Time - 06/03/2024 06:48 PM) Notes: Reviewed routine screening, safe sex and consistent barrier protection. Aware of window period for testing and testing options. Discussed symptoms that would warrant further evaluation and follow-up care ?? 4.?Other oil heaterman (current) drug therapy?LAB: Lipid Panel-[id number] (Collection Date & Time - 06/03/2024 06:48 PM) * Procedure Codes:? * Follow Up:?3 Months (Reason: PrEP F/U) * Billing Information: * Visit Code:? * Procedure Codes:? * Sign off status: Completed true * Provider:?Lourdes Meraz NP Date:? 024 Generated for Omer mena/Johnathan/Montserrat on:?09/12/2024 04:45 PM EST History and Physical Notes * HPI (History of Present Illness) Category Sub-Category Detail Notes Category Not es Visit Narrative Reason for the visit: PrEP F/U Last date of UPI: 03/2024 Examination Category Sub-Category Detail Notes Category Not es General Examination GENERAL APPEARANCE: pleasant, in n o acute distress
--- OUTSIDE RECORDS SUMMARY | 2024-09-12 16:45 | XMS_ITS | Patient Health Record ---
Author Organization [facility] Address [address] [place], [place] [id number] Care Team Providers Care Senior Software Analyst Name Role Phone ANALIA LEBRON Unavailable [phone] Allergies No Known Allergies Results Component Value Reference Range Notes T pallidum Screening [place] -[id number] Reviewed date:06/04/2024 10:18:40 AM Interpretation:Negative Performing Lab:[facility], [address], [place], Phone - [phone], [facility] Notes/Report: T pallidum Antibodies Non Reactive Non Reactive HIV Ab/p24 Ag with Reflex-[id number] Reviewed date:06/04/2024 12:53:53 PM Interpretation:Negative Performing Lab:[facility], [address], [address], [place] [employer], Phone - [phone], [facility] Notes/Report: HIV Ab/p24 Ag Screen Non Reactive Non Reactive HIV-1/HIV-2 antibodies and HIV-1 p24 antigen were NOT detected. There is no laboratory evidence of HIV infection. HIV Negative Ct, Ng, Trich vag by SCOUT-[id number] Reviewed date:06/06/2024 09:52:11 AM Interpretation:Negative Performing Lab:[facility], [address], [address], [place] [employer] [employer], Phone - [phone], [facility] Notes/Report: Chlamydia by SCOUT Negative Negative Gonococcus by SCOUT Negative Negative Trich vag by SCOUT Negative Negative Lipid Panel-[id number] Reviewed date:06/04/2024 10:58:11 AM Interpretation:LDL elevated Performing Lab:[facility], [address] [facility], Phone - [phone], Director - Chelsie Notes/Report: Cholesterol, Total 172 100-199 mg/dL Triglycerides 88 0-149 mg/dL HDL Cholesterol 41 >39 mg/dL VLDL Cholesterol Igor 16 5-40 mg/dL LDL Chol Calc ([facility]) 115 0-99 mg/dL Creatinine-003658 Reviewed date:02/28/2024 09:22:04 AM Interpretation:Creatinine 0.94/CrCl 128 ml/min Performing Lab:[facility] [place], [address] [facility], Phone - [phone], Director - Chelsie Notes/Report: Creatinine 0.94 0.76-1.27 mg/dL eGFR 115 >59 mL/min/1.73 HBsAg Screen-[id number] Reviewed date:02/28/2024 01:33:56 PM Interpretation:Negative Performing Lab:[facility], [address], [address], [place] [employer] [employer], Phone - [phone], Director - [facility] Notes/Report: HBsAg Screen Negative Negative Hepatitis B Surf Ab Quant-00 [id number] Reviewed date:02/28/2024 01:34:36 PM Interpretation:Immune Performing Lab:[facility], [address], [address], [place] [employer] [employer] [place], Phone - [phone], Director - [facility] Notes/Report: Hepatitis B Surf Ab Quant 296.0 Immunity>10 mIU /mL Status of Immunity Anti-HBs Level Inconsistent with Immunity 0.0 - 10.0 Consistent with Immunity >10.0 T pallidum Screening [place] -[id number] Reviewed date:02/28/2024 01:34:44 PM Interpretation:Negative Performing Lab:[facility], [address], [address], [place] [employer], Phone - [phone], Director - [facility] Notes/Report: T pallidum Antibodies Non Reactive Non Reactive HIV Ab/p24 Ag with Reflex-08 [id number] Reviewed date:02/28/2024 12:07:37 PM Interpretation:Negative Performing Lab:[facility], [address], [address], [place] [employer], Phone - [phone], Director - [facility] Notes/Report: HIV Ab/p24 Ag Screen Non Reactive Non Reactive HIV-1/HIV-2 antibodies and HIV-1 p24 antigen were NOT detected. There is no laboratory evidence of HIV infection. HIV Negative Chlamydia/GC Amplification-1 [id number] Reviewed date:02/28/2024 07:39:29 PM Interpretation:Negative Performing Lab:[facility] [place], [address], [address], [place], Phone - [phone], Director - [facility] Notes/Report: Chlamydia trachomatis, SCOUT Negative Negative Neisseria gonorrhoeae, SCOUT Negative Negative Trich vag by SCOUT-[id number] Reviewed date:02/28/2024 07:39:21 PM Interpretation:Negative Performing Lab:[facility] [place], [address], [address], [place], Phone - [phone], Director - [facility] Notes/Report: Trich vag by SCOUT Negative Negative HCV Antibody-[id number] Reviewed date:02/28/2024 01:33:36 PM Interpretation:Negative Performing Lab:[facility] [place], [address], [address], [place] [employer], Phone - [phone], Director - [facility] Notes/Report: Hep C Virus Ab Non Reactive Non Reactive HCV antibody alone does not differentiate between previously resolved infection and active infection. Equivocal and Reactive HCV antibody results should be followed up with an HCV RNA test to support the diagnosis of active HCV infection. Reason For Referral No Information Medications Medication SIG (Take, Route, Frequency, Duration) [...] tablet Orally Once a day for 30 day(s) Active Social History Sex Assigned At : Social History Observation Description Sex Assigned At Male Vital Signs Blood pressure diastolic 76 mm Hg 06/03/2024 Height 65 in 06/03/2024 Blood pressure systolic 132 mm Hg 06/03/2024 Weight 217.3 lbs 06/03/2024 BMI 36.16 kg/m2 06/03/2024 Encounters Encounter [facility] [place], [place] [id number] 02/27/[facility]24 ANALIA GABAI Encounter for screen ing for infections with a predominantly sexual mode of transmission Z11.3 ; Encounter for HIV pre-exposure prophylaxis Z29.81 ; Counseling, unspecified Z71.9 ; Other problems related to lifestyle Z72.89 ; Encounter for screening for human immunodeficiency virus [HIV] Z11.4 ; Screening for other viral diseases Z11.59 ; Other longterm (current) drug therapy Z79.899 ; Contact with and (suspected) exposure to other viral communicable diseases Z20.828 and Encounter for screening for human immunodeficiency virus [HIV] Z11.4 [facility] [address] [place] [id number] 06/03/2024 ANALIA GABAI Encounter for screen ing for human immunodeficiency virus [HIV] Z11.4 ; Encounter for HIV pre-exposure prophylaxis Z29.81 ; Encounter for screening for infections with a predominantly sexual mode of transmission Z11.3 ; Other problems related to lifestyle Z72.89 and Other manager intermediate (current) drug therapy Z79.899 [facility] [address] [place] [phone] 02/27/2024 ANALIA GABAI [facility] [address] [place] [phone] 06/03/2024 ANALIA GABAI Assessments Encounter Date Diagnosis (ICD Code) Assessment Notes Treatment Notes Treatment Clinical Notes Section Notes 02/27/2024 Encounter for screening for infections with a predominantly sexual mode of transmission (ICD-10 - Z11.3) Reviewed STI screening recommendations and available testing through [facility]. Testing ordered as noted per patient risks and preference. Encouraged safe sex practices. Advised to call for evaluation if any symptoms arise. Reviewed method of communicating results to patient. Spent ___ minutes doing the following: Chart Prep Obtaining/revie wing history Performing medically necessary exam Counseling/Coor dination of Care Documenting the visit Educating the patient Ordering medication/test /procedures Communication of test results Established Patient: [id number] 30 Minutes 02/27/2024 Encounter for HIV pre-exposure prophylaxis (ICD-10 - [...] when it is not taken every day. Discussed options for taking PrEP on Demand (2-1-1) regimen. This is a non-daily PrEP dosing strategy that has only been evaluated in MSM and was 86% effective at preventing HIV transmission. This is not FDA approved. Continue to use condoms while taking PrEP. [...] if clt wants to stop taking PrEP. PrEP is safe, but some people experience side effects like diarrhea, nausea, headache, fatigue, and stomach pain. These side effects usually go away over time within 4-8 weeks after starting medication. Reviewed resources if clt is uninsured or needs co-pay assistance to help lower the cost of PrEP medication: The Ready, Set, PrEP program and [place] HIV Drug Assistance Program (HDAP) which makes PrEP available at no cost to those who qualify. [employer] offers a program to help patients pay for PrEP shots. Spent ___ minutes doing the following: Chart Prep Obtaining/revie wing history Performing medically necessary exam Counseling/Coor dination of Care Documenting the visit Educating the patient Ordering medication/test /procedures Communication of test results Established Patient: [id number] 30 Minutes 06/03/2024 Encounter for screening for human immunodeficiency [...] Section C) Risk Document low risk of morbidity/morta lity 06/03/2024 Encounter for HIV pre-exposure prophylaxis (ICD-10 [...] Section C) Risk Document low risk of morbidity/morta lity 02/27/2024 Counseling, unspecified (ICD-10 - Z71.9) Support provided regarding clts concerns of sex addiction. Recommended he discuss further with therapist or ask for referrals and support groups. Clt is established in care and plans to start this conversation Spent ___ minutes doing the following: Chart Prep Obtaining/revie wing history Performing medically necessary exam Counseling/Coor dination of Care Documenting the visit Educating the patient Ordering medication/test /procedures Communication of test results Established Patient: [id number] 30 Minutes 06/03/2024 Encounter for screening for infections with [...] Section C) Risk Document low risk of morbidity/morta lity 02/27/2024 Other problems related to lifestyle (ICD-10 - Z72.89) Spent ___ minutes doing the following: Chart Prep Obtaining/revie wing history Performing medically necessary exam Counseling/Coor dination of Care Documenting the visit Educating the patient Ordering medication/test /procedures Communication of test results Established Patient: [id number] 30 Minutes 06/03/2024 Other problems related to lifestyle (ICD-10 [...] Section C) Risk Document low risk of morbidity/morta lity 02/27/2024 Encounter for screening for human immunodeficiency virus [HIV] (ICD-10 - Z11.4) Spent ___ minutes doing the following: Chart Prep Obtaining/revie wing history Performing medically necessary exam Counseling/Coor dination of Care Documenting the visit Educating the patient Ordering medication/test /procedures Communication of test results Established Patient: [id number] 30 Minutes 06/03/2024 Other longterm (current) drug therapy (ICD-10 - Z79.899) Need [...] Section C) Risk Document low risk of morbidity/morta lity 02/27/2024 Screening for other viral diseases (ICD-10 - Z11.59) Spent ___ minutes doing the following: Chart Prep Obtaining/revie wing history Performing medically necessary exam Counseling/Coor dination of Care Documenting the visit Educating the patient Ordering medication/test /procedures Communication of test results Established Patient: 10087 30 Minutes 02/27/2024 Other manager intermediate (current) drug therapy (ICD-10 - Z79.899) Spent ___ minutes doing the following: Chart Prep Obtaining/revie wing history Performing medically necessary exam Counseling/Coor dination of Care Documenting the visit Educating the patient Ordering medication/test /procedures Communication of test results Established Patient: 34891 30 Minutes 02/27/2024 Contact with and (suspected) exposure to other viral communicable diseases (ICD-10 - Z20.828) Discussed effectiveness, benefits, and risks of Doxy-PEP, as well as other options available to prevent STIs. Reviewed full spectrum of prevention options available to clt, including alternatives to Doxy-PEP (e.g., condom use), STI testing and treatment, HIV pre-exposure prophylaxis (PrEP) and emergency post-exposure prophylaxis (PEP), HIV testing, HIV treatment for people with HIV, and STI vaccines (e.g., human papillomavirus, hepatitis A, hepatitis B, and Mpox vaccines Doxy-PEP has been shown in studies to reduce the incidence of syphilis, chlamydia, and gonorrhea among cisgender men who have sex with men (MSM) and transgender women with a recent history of these infections. Reductions of 87% for syphilis, 88% for chlamydia, and 55% for gonorrhea among people taking HIV PrEP, and reductions of 77% for syphilis, 74% for chlamydia, and 57% for gonorrhea among people with HIV. Aware that these rates were based on MSM population and not cisgender men who are sexually active with AFAB. Doxy-PEP for bacterial STI prevention consists of 200 mg of doxycycline taken ideally within 24 hours, but no later than 72 hours, after condomless oral, anal, or vaginal/front whole sex. Doxycycline can be taken as often as every day, depending on frequency of condomless sexual exposure, but no more than 200 mg should be taken within a 24-hour period. It should be taken at least 1 hour before or 2 hours after antacids, calcium, or iron-containing products. Studies are needed on the potential long-term effects of Doxy-PEP on individual and population health. Side effects include: microbiome changes and antibiotic resistance Spent ___ minutes doing the following: Chart Prep Obtaining/revie wing history Performing medically necessary exam Counseling/Coor dination of Care Documenting the visit Educating the patient Ordering medication/test /procedures Communication of test results Established Patient: 00146 30 Minutes 02/27/2024 Encounter for screening for human immunodeficiency virus [HIV] (ICD-10 - Z11.4) Spent ___ minutes doing the following: Chart Prep Obtaining/revie wing history Performing medically necessary exam Counseling/Coor dination of Care Documenting the visit Educating the patient Ordering medication/test /procedures Communication of test results Established Patient: [id number] 30 Minutes Plan Of Treatment Next Appt Details Provider Name:ANALIA LEBRON , 09/23/2024 04:00:00 PM, [address] [place] [address], [address], [place], [place], [id number], Insurance Providers Payer Name Payer Address Payer Phone Subscriber Number Group Number Insured Name Patient Relationship to Insured Coverage Start Date Coverage End Date [place] [address] [place] [id number] Sree Sam Self - patient is the insured Medical (General) History Medical History History ICD Code chronic urethral pain and discharge, all work up with urology negative GC trich LDL slightly elevated Surgical History Surgery Date(Month/Year) keloids 09/2020
--- OUTSIDE RECORDS SUMMARY | 2024-09-12 16:45 | XMS_ITS | Clinical Summary ---
Author Organization [employer] Address [address] [place] [address] 7 [place] [address] Care Team Providers Care Employee Relations Manager Name Role Phone Bigg Garza MD Primary Care Provide r Allergies No known active allergies Medications * This document contains information received from the source organization and may not represent a complete record from that organization. hydrocortisone (Anusol-HC) 2.5 % rectal creamIndication s:External hemorrhoid Apply twice daily to rectum for 1 week 28 g 03/01/20 23 Active emtricitabine-t enofovir AF (Descovy) 200-25 MG tabletIndicatio ns:On pre-exposure prophylaxis for HIV Take 1 tablet by mouth in the morning. 30 tablet 2 05/25/20 23 Active escitalopram (Lexapro) 10 MG tabletIndicatio ns:Moderate episode of recurrent major depressive disorder (CMS/HCC) Take 1 tablet (10 mg) by mouth Once per day. 30 tablet 1 09/12/19 25 Active doxycycline (Adoxa) 100 MG tabletIndicatio ns:On pre-exposure prophylaxis for HIV 2 tablet Orally Taken as soon as possible after sex, ideally within 24 hours and no later than 72 hours after sex. No more than 200 mg should be taken within a 24-hour period. for 15 day 30 tablet 2 09/12/19 25 Active doxycycline (Adoxa) 100 MG tablet 2 tablets. 2 tablet Orally Taken as soon as possible after sex, ideally within 24 hours and no later than 72 hours after sex. No more than 200 mg should be taken within a 24-hour period. for 15 day 02/27/20 24 025 Discontinued(Re order (will not trigger notification to Pharmacy)) escitalopram (Lexapro) 10 MG tablet Take 10 mg by mouth Once per day. 08/08/19 25 025 Discontinued(Re order (will not trigger notification to Pharmacy)) Active Problems Problem Noted Date Diagnosed Date Elevated blood pressure reading 09/12/2024 Assessment & Plan (09/12/2024 3:38 PM EST): First time, mild 3 months follow up for repeat On pre-exposure prophylaxis for HIV 05/02/2024 Assessment & Plan (09/12/2024 3:37 PM EST): On Descovy from [facility] and DoxyPep Pt would like to get his PrEP from us, I referred him to our PrEP navigator. Pt is sexually active. He still has several pills left over Pt to have his labs done today and will refill scrip for Descovy once labs back. Script for Doxypep sent. Assessment & Plan (05/02/2024 3:27 PM EDT): On Descovy from [facility] and DoxyPep Routine physical examination 10/31/2023 Assessment & Plan (10/31/2023 2:51 PM EDT): Within normal limits Low back pain, non-specific 08/30/2022 Assessment & Plan (05/02/2024 3:24 PM EDT): Likely due to poor posture Treated with Nsaids Plain films LS spine 09/23/2022 Unremarkable Seeing a chiropractor , Needs updated referral Assessment & Plan (10/31/2023 3:17 PM EDT): Likely due to poor posture Treated with Nsaids Plain films LS spine 09/23/2022 Unremarkable Seeing a chiropractor , doing well Assessment & Plan (11/21/2022 1:33 PM EDT): Likely due to poor posture Treated with Nsaids Plain films LS spine 09/23/2022 Unremarkable PT evaluation recommended Assessment & Plan (08/30/2022 3:16 PM EST): Likely due to poor posture Plan: Nsaids, plain films LS spine, PT Follow up if no improvement Decreased visual acuity 08/30/2022 Assessment & Plan (11/21/2022 1:34 PM EDT): Referred to Optometry at [facility]. 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 Assessment & Plan (10/31/2023 2:49 PM EDT): Patient has been counseled and educated about diet and exercise. Assessment & Plan (08/30/2022 4:45 PM EST): Patient has been counseled and educated about diet and exercise. Moderate episode of recurrent major depressive d isorder 08/28/2022 Assessment & Plan (09/12/2024 3:27 PM EST): Pt here fort a follow up.Doing well Previously evaluated at our psychopharmacology clinic, Last seen 11/2022 back then Hank blanca had recommended Lexapro 10 mg daily Back then pt had reported improved mood, No other S/E. He stopped Lexapro, previous visit wanted to re establish care with a therapist. Pt is seeing Claudia Carver at [facility] [place] for Psych prescribing. Pt ran out of Lexapro, will refill Previous Hx: [facility] 06/09/2022 with c/o depression and suicidal ideation. Pt evaluated by the Crisis team and was eventually admitted. Pt told me he had a good stay, He was evaluated by a psychiatrist and he declined any type of Medication. He had been following with a psychotherapist Claudia Carver via zoom once a week, no longer doing that. Interested in starting services again. Assessment & Plan (05/02/2024 3:43 PM EDT): Pt here fort a follow up. seen at [facility] 06/09/2022 with c/o depression and suicidal ideation. Pt evaluated by the Crisis team and was eventually admitted. Pt told me he had a good stay, He was evaluated by a psychiatrist and he declined any type of Medication. He had been following with a psychotherapist Claudia Carver via zoom once a week, no longer doing that. Interested in starting services again. Previously evaluated at our psychopharmacology clinic Last seen 11/2022 back then Hank blanca had recommended Lexapro 10 mg daily Back then pt had reported improved mood, No other S/E. He stopped Lexapro, would like to re establish care with a therapist. Assessment & Plan (10/31/2023 3:16 PM EDT): Pt here fort a follow up. seen at [facility] 06/09/2022 with c/o depression and suicidal ideation. Pt evaluated by the Crisis team and was eventually admitted. Pt told me he had a good stay, He was evaluated by a psychiatrist and he declined any type of Medication. He has been following with a psychotherapist Claudia Carver via zoom once a week, Evaluated at our psychopharmacology clinic Last seen 11/2022 back then Hank blanca had recommended Lexapro 10 mg daily Back then pt had reported improved mood, No other S/E. Today he tells me he stopped Lexapro, but he continues to follow with therapist as usual. Assessment & Plan (11/24/2022 9:24 AM EDT): History childhood trauma, no symptoms of PTSD. Does not have good resilience for negative experiences, is aware that One additional thing could put me back. Hx suicide attempts, most recently May 2022 (strangulation), with hospitalization. Taking increased Lexapro 10 mg daily with improved mood, Only occasionally still down. However has had some episodes of trouble staying asleep. No other S/E. Will remain at current dose for now, and F/U in 1 month. F/U with therapist as usual. He agrees with the plan. Assessment & Plan (10/24/2022 9:23 AM EDT): History childhood trauma, no symptoms of PTSD. Does not have good resilience for negative experiences, is aware that One additional thing could put me back. Hx suicide attempts, most recently May 2022 (strangulation), with hospitalization. No problems with starting dose of Lexapro 5 mg, will now increase to Lexapro 10 mg once daily. Previously discussed potential for sexual dysfunction and instructions that if he experiences any serious S/E to stop the medication. F/U with therapist as usual and with me in 1 month. He agrees with the plan. Assessment & Plan (09/29/2022 11:27 AM EST): With persistent SI without current intent or plan. History childhood trauma, no symptoms of PTSD. Does not have good resilience for negative experiences, is aware that One additional thing could put me back. Hx suicide attempts, most recently May 2022 (strangulation), with hospitalization. Has therapist currently, has never had medications but interested in trialing now. Will start Lexapro 5 mg once daily. Discussed potential for sexual dysfunction. If experiences any serious S/E to stop the medication. Otherwise do take every day, as would likely not notice any improvement in mood for at least 1-2 weeks. Reviewed that my goal was for him to improve his mood and ability to cope with stressors. We would meet frequently at first, then less often. If he needed to miss an appt, call to reschedule. F/U 3 weeks. He agrees with the plan. Assessment & Plan (08/30/2022 3:11 PM EST): Pt here fort a follow up. seen at [facility] 06/09/2022 with c/o depression and suicidal ideation. Pt evaluated by the Crisis team and was eventually admitted. Pt told me he had a good stay, He was evaluated by a psychiatrist and he declined any type of Medication. He has been following with a psychotherapist Claudia Carver via zoom once a week, but is interested in being evaluated at our psychopharmacology clinic Keloid skin disorder 08/28/2022 Assessment & Plan (10/31/2023 3:17 PM EDT): Evaluated by plastic surgery, s/p excision and steroid injection. S/p excision and radiation therapy, unfortunately it did not help Assessment & Plan (11/22/2022 9:36 AM EDT): Evaluated by plastic surgery, s/p excision and steroid injection. 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 We contacted [facility] and it appears his referral has so they are requesting a new one, will place bow Encounters Date Type Department Care Team Description 09/12/2024 3:00 PM EST Office Visit [facility] MEDICINE [address] [place] [phone] Bigg Garza MD Moderate episode of recurrent major depressive disorder (CMS/HCC) (Primary Dx); On pre-exposure prophylaxis for HIV; Class 2 obesity due to excess calories without serious comorbidity with body mass index (BMI) of 36.0 to 36.9 in adult; Dietary counseling; Exercise counseling; Elevated blood pressure reading 09/12/2024 Travel 08/29/2024 Telephone [facility] [address] [place] [phone] Bigg Garza MD Chart Prep 08/27/2024 Patient Outreach [facility] [address] [place] [address] Bigg Garza MD Care Coordination (CHW outreach for SDOH food needs-referral completed /) 08/27/2024 Patient Outreach [facility] [address] [place] [address] Bigg Garza MD Pre-visit Planning (SDOH screening positive and Tobacco screening negative) from Last 3 Months Immunizations Name Administration Dates Next Due DTaP 12/31/2001, 9,1997,09/29,1997 HPV 9-Valent 07/27/2015 HPV, Quadrivalent 05/28/2014 Hep B, Adolescent or Pediatric 1997,1997,1997 Hep B, Unspecified 1997,1997, 997 IPV 12/31/2001, 9,1997,08/04 Influenza injectable quadriv alent IIV4 with preservative 04/04/2019 Influenza injectable quadriv alent preservative free 05/24/2023,06/13/2022,05/26/2021,06/23,10/16/2018 Influenza live intranasal trivalent 06/08/2010 Influenza, IIV3, injectable 07/27/2015, 4,06/28/2006 Influenza, live, intranasal 06/08/2010 Influenza, seasonal, injecta ble, preservative free 05/02/2024,07/27/2015,05/28/2014,06/28 MMR 12/31/2001,03/25/1998 Meningococcal ACWY, unspecified 09/29/2008 Meningococcal MCV4P ACYW-135 07/27/2015,09/30/19 09 PPD Test 11/18/2022 Pfizer Covid-19 Vaccine 12+ 05/02/2024 TD (adult), 2 Lf tetanus tox oid, preservative free, adsorbed 02/11/2019 Tdap 09/29/2008 Varicella 09/29/2008,06/10/1999 Social History Tobacco Use Types Packs/Day Years Used Date Smoking Tobacco: Never Passive Smoke Exposure: Never Smokeless Tobacco: Never Tobacco Cessation:Counseling Given: Not Answered Alcohol Use Standard Drinks/Week Comments Never 0 [...] Orientation Straight 05/23/2022 10 :35 AM EDT Last Filed Vital Signs Vital Sign Reading [...] Mass Index 36.9 09/12/2024 3:03 PM EST Plan of Treatment Upcoming Encounters Date Type Department Care Team (Late st Contact Info) Description 11/05/2024 2:30 PM EDT Office Visit [facility] [address] [place] [address] Bigg Garza MD [address] [place], [place] [phone] Health Maintenance Due Date Last Done Comments Lipid Panel 1997 Family Planning (PISQ) 2012 HPV Vaccines (3 - Male 3-dose series) 10/19/2015 07/27/2015, 05/28/2014 SDOH Screening 08/27/2025 08/27/2024 Alcohol/Substance Use Screening 09/12/2025 09/12/2024 Depression Screening 09/12/2025 09/12/2024, 09/12/19 Tobacco Screening 09/12/2025 09/12/2024 DTaP/Tdap/Td Vaccines (8 - Td or Tdap) 02/11/2029 02/11/2019, 09/29/2008, 12/31/2001, Additional history exists Zoster Vaccines (1 of 2) 2047 RSV Patients and Patients Aged 60 years or older (1 - 1-dose 75+ series) 2072 Hepatitis B Vaccines Completed 1997, 1997, 1997, Additional history exists IPV Vaccines Completed 12/31/2001, 08/25, 1997, Additional history exists Meningococcal Vaccine Completed 07/27/2015 , 09/29/2008, 09/29/2008 HIV Screening Completed 08/18/2023, 10/31/2019 Hepatitis C Screening Completed 08/18/2023, 020 COVID-19 Vaccine Completed 05/02/2024, , 05/26/2021 Influenza Vaccine Completed 05/02/2024, , 06/13/2022, Additional history exists HIB Vaccines Aged Out No longer eligi ble based on patient's age to complete this topic Hepatitis A Vaccines Aged Out No long er eligible based on patient's age to complete this topic Pneumococcal Vaccine: Pediatrics (0 to 5 Years) and At-Risk Patients (6 to 49) Years) Aged Out No longer eligible based on patient's age to complete this topic RSV under 20 months Aged Out No longe r eligible based on patient's age to complete this topic Rotavirus Vaccines Aged Out No longer eligible based on patient's age to complete this topic Procedures Procedure Name Priority Date/Time Associated Diagnosis Comments HEPATITIS C AB W/REFL TO HCV RNA, QN, PCR Routine 08/18/2023 3:14 PM EST Screening for STDs (sexually transmitted diseases) HIV 1 RNA, QUANTITATIVE REAL TIME PCR Routine 08/18/2023 3:14 PM EST Screening for STDs (sexually transmitted diseases) from Last 3 Months or Most Recently Relevant to Health Maintenance Results * Hepatitis C Antibody with Reflex to HCV, RNA, Quantitative, Real-Time PCR (08/18/2023 3:14 PM EST) Pathologist [facility] Hepatitis C Antibody Nonreactive Nonreactive [facility] Comment:Antibodies to HCV no t detected; does not exclude early acuteHCV infection. Blood Venous blood specimen / Unknown 08/18/2023 3:14 PM EST 08/18/2023 5:45 PM EST us Bigg Prasad MD LAB BLOOD ORDERABLES Final Result [facility] [address] [place] [phone] * HIV-1 RNA, Quantitative, Real-Time PCR (08/18/2023 3:14 PM EST) HIV RNA PCR Qn Copies NOT DETECTED NOT DETECTED copies/mL [facility] HIV RNA PCR Qn Log Copies NOT DETECTED NOT DETECTED [facility] Comment:Result Units: Log co pies/mLThis test was performed using Real-Time Polymerase ChainReaction.Reportable Range: 20 copies/mL to 10,000,000 copies/mL(1.30 log copies/mL to 7.00 log copies/mL).THIS TEST WAS PERFORMED AT:[facility] [place] [phone] AIKEN MD Blood Venous blood specimen / Unknown 08/18/2023 3:14 PM EST 08/18/2023 5:45 PM EST Bigg Prasad MD LAB BLOOD ORDERABLES Final Result [facility] [address] [place] [phone] [phone] from Last 3 Months or Most Recently Relevant to Health Maintenance Insurance [facility] C3 HSN FULL Care Teams Employee Relations Manager Relationship Specialty Start Date End Date Bigg Garza MD [address] [place] [phone] PCP - General Internal Medicine 10/16/18
--- OUTSIDE RECORDS SUMMARY | 2024-09-12 16:45 | XMS_ITS | Encounter Summary ---
Author Organization [employer] Address [address] [facility] [address] [place] [address] Care Team Providers Care Valet Parking Attendant Name Role Phone Bigg Garza MD Primary Care Provide r Reason for Visit * Reason Onset Date Comments Chart Prep 08/29/2024 Encounter Details Date Type Department Care Team ([facility] st Contact Info) Description 08/29/2024 Telephone [facility] [address] [place], [place] [phone] Bigg Garza MD [address] [place] [address] Chart Prep Social History Tobacco Use Types Packs/Day Years [...] AM EDT documented as of this encounter Miscellaneous Notes * Telephone Encounter - Tori Barnes [place] - 08/29/2024 3:20 PM EST Chart Prep Labs: not done Images: not applicable Vaccines due: Updated Referrals: Chiropractic sent a fax request incase pt has been seen. Screenings: Not Applicable Overdue care gaps: Sbirt and PHQ-9 Chart prep for upcoming appt with Dr.Esparza torres LB documented in this encounter Plan of Treatment Upcoming Encounters Date Type Department Care Team (Late st Contact Info) Description 11/05/2024 2:30 PM EDT Office Visit [facility] [address] [place] [address] Bigg Garza MD [address] [place] [phone] documented as of this encounter Visit Diagnoses Not on filedocumented in this encounter Additional Health Concerns Assessment Noted Time PHQ-9 Depression Total Score: 12 024 3:06 PM EDT documented as of this encounter Care Teams Valet Parking Attendant Relationship Specialty Start Date End Date Bigg Garza MD [address] [place] [address] PCP - General Internal Medicine 10/16/18 documented as of this encounter
[2024-09-12 17:54] LABS: MANUAL DIFF FLAG NO
[2024-09-12 18:15] LABS: Basophils Percent Auto 0.5 % (0-2); Eosinophils Absolute Auto 0.1 X10*3/uL (0.0-0.4); Eosinophils Percent Auto 2.2 % (0-4); Hematocrit 46.6 % (42.0-52.0); Hemoglobin 15.6 g/dl (14.0-18.0); Imm Gran Abs Auto 0.01 X10*3/uL (0.00-0.03); Imm Gran Pct Auto 0.2 % (0.0-0.4); Lymphocytes Absolute Auto 2.2 X10*3/uL (1.2-4.9); Lymphocytes Percent Auto 39.6 % (20-40); Mean Corpuscular HGB Conc 33.5 g/dl (31.0-36.0); Mean Corpuscular Hemoglobin 29.8 pg (27.0-33.0); Mean Corpuscular Volume 89.1 fL (80.0-98.0); Mean Platelet Volume 10.5 fL (9.4-12.4); Monocytes Absolute Auto 0.5 X10*3/uL (0.1-1.2); Monocytes Percent Auto 9.9 % (2-11); Neutrophils Absolute Auto 2.6 x10*3/uL (2.0-8.3); Neutrophils Percent Auto 47.6 % (45-73); Platelet Count 220 X10*3/uL (160-400); Red Blood Count 5.23 X10*6/uL (4.60-5.80); Red Cell Distribution Width 13.3 % (11.0-16.0); White Blood Count 5.5 X10*3/uL (4.8-10.8)
[2024-09-12 18:33] LABS: Alanine Aminotransferase 38 U/L (0-40); Albumin Level 4.5 g/dL (3.5-5.0); Alkaline Phosphatase 76 U/L (39-117); Anion Gap 12 (12-20); Aspartate Amino Transferase 25 U/L (5-37); Bilirubin Total 0.7 mg/dL (0.0-1.0); Blood Urea Nitrogen 12 mg/dL (9-16); Calcium 10.2 mg/dL (8.4-10.2); Carbon Dioxide 26 mmol/L (22-29); Chloride 107 mmol/L (96-108); Cholesterol 159 mg/dL (<200); Estimated Glomerular Filt Rate > 60; Glucose Random 92 mg/dL (60-115); HDL Cholesterol 36 mg/dL (>40); LDL Cholesterol Calculated 92 mg/dL (<100); Potassium 4.1 mmol/L (3.3-5.1); Sodium 141 mmol/L (135-145); Total Protein 8.1 g/dL (6.5-8.0); Triglycerides 157 mg/dL (<150)
[2024-09-12 18:40] LABS: Reflex LDLD? No
[2024-09-13 08:20] LABS: HIV AB/AG Nonreactive (Nonreactive); HIV Num 1 0.07 S/CO (0.00-0.99); ~HepC Num1 0.04 S/CO (0.00-0.79); ~Hepatitis C Antibody Nonreactive (Nonreactive)
[2024-09-13 08:40] LABS: Syphilis Screen Nonreactive (Nonreactive)
[2024-09-14 11:29] LABS: Trichomonas vaginalis RNA NOT DETECTED (NOT DETECTED)
[2024-09-14 19:24] LABS: HIV RNA PCR Qn Copies NOT DETECTED copies/mL (NOT DETECTED); HIV RNA PCR Qn Log Copies NOT DETECTED (NOT DETECTED)
[2024-09-16 23:28] LABS: C. Trachomatis RNA TMA, Throat NOT DETECTED; N. gonorrhoeae RNA TMA, Throat NOT DETECTED
== END 2024-09-12 15:51 | disposition home or self-care (01) ==
LOC: HO.HHCL 15:50
PROVIDERS: Visit Provider Internal Medicine
DX: Z00.00 Encounter for general adult medical examination without abnormal findings (principal); Z79.899 Other long term (current) drug therapy; E66.812 Obesity, class 2; Z11.3 Encounter for screening for infections with a predominantly sexual mode of transmission; Z68.35 Body mass index [BMI] 35.0-35.9, adult; E66.09 Other obesity due to excess calories
CPT/HCPCS: 36415; 80053; 80061; 84443; 85025; 86780; 86803; 87389; 87491; 87536; 87591; 87661

== ENCOUNTER 2025-05-20 14:35 | Outpatient (REF) | payer MEDICAID, SELFPAY ==
--- OUTSIDE RECORDS SUMMARY | 2024-08-27 13:15 | XMS_ITS ---
Author Organization [facility] Address [address] [place] [address] Care Team Providers Care Geophysical Engineer Name Role Phone ANALIA MERAZ Unavailable [phone] REASON FOR VISIT PrEP F/U Social History Sex Assigned At : Social History Observation Description Sex Assigned At Male Encounters Encounter Location Date Provider Diagnosis [facility] [address] [place] [address] [phone] 08/27/2024 ANALIA MERAZ Plan Of Treatment No Information Progress Notes * Ramakrishna SAMOB:1995 (30 yo M)Acc No.[id number]:08/27/2024 Progress Notes Patient: Edgar Harrellun Provider: Ozzy Meraz NP :1995 A ge:29 Y S ex:Male Date:08/27/2024 Address:[address] [place], [place] [id number] Subjective: * Chief Complaints: * P rEP F/U * Electronic signature of KAREN MERAZ NP on 05/20/2025 at 07:01 PM EDT Sign off status: Pending * Provider: Ozzy Meraz NP Date: 0 08/27/2024 Generated for Jfi rajesh/Johnathan/eTransmitting on: 1 07:01 PM EDT
--- OUTSIDE RECORDS SUMMARY | 2024-09-23 12:00 | XMS_ITS ---
Author Organization [employer] Address [address] [place] [address] Care Team Providers Care Block Layer Name Role Phone ANALIA MERAZ Unavailable [phone] REASON FOR VISIT PrEP F/U Social History Sex Assigned At : Social History Observation Description Sex Assigned At Male Encounters Encounter Location Date Provider Diagnosis [facility] [address] [place] [phone] 09/23/2024 ANALIA MERAZ Plan Of Treatment No Information Progress Notes * Ramakrishna SAMOB:1995 (30 yo M)Acc No.[id number]:09/23/2024 Progress Notes Patient: Edgar Harrellun Provider: Ozzy Meraz NP :1995 A ge:29 Y S ex:Male Date:09/23/2024 Address:[address] [place], [place] [id number] Subjective: * Chief Complaints: * P rEP F/U * Electronic signature of KAREN MERAZ NP on 05/20/2025 at 01:51 PM EDT Sign off status: Pending * Provider: Ozzy Meraz NP Date: 0 09/23/2024 Generated for Jfi rajesh/Johnathan/eTransmitting on: 1 01:51 PM EDT
--- OUTSIDE RECORDS SUMMARY | 2025-01-06 13:30 | XMS_ITS ---
Author Organization [employer] Address [address] [place] [address] Care Team Providers Care Renal Technician Name Role Phone ANALIA MERAZ Unavailable [phone] REASON FOR VISIT PrEP F/U Social History Sex Assigned At : Social History Observation Description Sex Assigned At Male Encounters Encounter Location Date Provider Diagnosis [facility] [address] [place] [phone] 01/06/2025 ANALIA MERAZ Plan Of Treatment No Information Progress Notes * Ramakrishna SAMOB:1995 (30 yo M)Acc No.[id number]:01/06/2025 Progress Notes Patient: Edgar Harrellun Provider: Ozzy Meraz NP :1995 A ge:29 Y S ex:Male Date:01/06/2025 Address:[address] [place], [place] [id number] Subjective: * Chief Complaints: * P rEP F/U Billing Information: * Procedure Codes: * Electronic signature of KAREN MERAZ NP on 05/20/2025 at 01:51 PM EDT Sign off status: Pending * Provider: Ozzy Meraz NP Date: 0 01/06/2025 Generated for Jfi ng/Johnathan/eTransmitting on: 1 01:51 PM EDT
--- OUTSIDE RECORDS SUMMARY | 2025-05-06 13:00 | XMS_ITS ---
Author Organization [facility] Address [address] [place] [address] Care Team Providers Care Cane Furniture Maker Name Role Phone ANALIA MERAZ Unavailable [phone] REASON FOR VISIT Counseling/Testing Social History Sex Assigned At : Social History Observation Description Sex Assigned At Male Encounters Encounter Location Date Provider Diagnosis [facility] [address] [place] [phone] 05/06/2025 ANALIA MERAZ Plan Of Treatment No Information Progress Notes * Ramakrishna SAMOB:1995 (30 yo M)Acc No.[id number]:05/06/2025 Progress Notes Patient: Edgar Harrellun Provider: Ozzy Meraz NP :1995 A ge:30 Y S ex:Male Date:05/06/2025 Address:[address] [place] [address] [id number] Subjective: * Chief Complaints: * C ounseling/Testing * Electronic signature of KAREN MERAZ NP on 05/20/2025 at 01:51 PM EDT Sign off status: Pending * Provider: Ozzy Meraz NP Date: Generated for Omer mena/Johnathan/eTransmitting on: 01:51 PM EDT
--- OUTSIDE RECORDS SUMMARY | 2025-05-20 13:30 | XMS_ITS | Encounter Summary ---
Author Organization [employer] Address [address] [place] [address] [address] [place] [address] Care Team Providers Care Flight/Transport Nurse Name Role Phone Bigg Garza MD Primary Care Provide r Reason for Referral * Consultation (Routine) - Authorized Specialty Diagnoses / Procedures Referred By Delia suh Referred To Contact Family Medicine Diagnoses On pre-exposure prophylaxis for HIV Bigg Garza MD [address] [place] [address] Phone: tel: fax: Referral ID Status Reason Start Date Expiration Date Visits Requested Visits Authorized [id number] Authorized Specialty Services Required 05/20/2026 1 1 Encounter Details Date Type Department Care Team (Late st Contact Info) Description 05/20/2025 1:30 PM EDT Office Visit [facility] [address] [place], [place] [phone] Bigg Garza MD [address], [place] [phone] Routine physical examination (Primary Dx); On pre-exposure prophylaxis for HIV; Class 2 obesity due to excess calories without serious comorbidity with body mass index (BMI) of 37.0 to 37.9 in adult; Left wrist pain; Moderate episode of recurrent major depressive disorder (CMS/HCC) (HCC); Encounter for immunization Social History Tobacco Use Types Packs/Day Years [...] Sign Reading Time Taken Comments Blood Pressure 120/86 05/20/2025 1:34 PM EDT Pulse 88 05/20/2025 1:34 PM EDT Temperature 36.4 C (97.5 F) 05/20/2025 1:34 PM EDT Respiratory Rate 20 05/20/2025 1:34 PM EDT Oxygen Saturation 99% 05/20/2025 1:34 PM EDT Inhaled Oxygen Concentration - - Weight 105 kg (231 lb) 05/20/2025 1:34 PM EDT Height 167.6 cm (5' 6 ) 05/20/2025 1:34 PM EDT Body Mass Index 37.28 05/20/2025 1:34 PM EDT documented in this encounter Progress Notes * Bigg Prasad MD - 05/20/2025 1:30 PM EDT SUBJECTIVE Sree Sam is a 30 y.o. male who presents for No chief complaint on file.. Sree Sam, age 30 years Bilateral Wrist and Hand Pain - Intermittent pain in both wrists and fingers, more frequent during colder months - Pain triggered by typing, repetitive hand movements, and pressure on wrists - Occasional numbness and tingling in fingers - No redness or swelling noted - History of prior orthopedic evaluation for right hand within the past 2 to 3 years - Relief with use of hand cover for right hand, requesting similar for left hand Misc - Denies weakness, difficulty swallowing, chest pain, abdominal pain, nausea, vomiting, diarrhea, blood in stool, testicular pain HPI Review of Systems Constitutional: Negative for appetite change, fatigue and fever. HENT: Negative for ear pain, hearing loss and sore throat. Eyes: Negative for pain and visual disturbance. Respiratory: Negative for cough and shortness of breath. Cardiovascular: Negative for chest pain and palpitations. Gastrointestinal: Negative for abdominal pain, nausea and vomiting. Genitourinary: Negative for dysuria. Skin: Negative for rash. Neurological: Negative for dizziness and headaches. Psychiatric/Behavioral: Negative for sleep disturbance. Allergies[1] OBJECTIVE Vitals: 05/20/25 1334 BP: 120/86 BP Location: Left arm Patient Position: Sitting BP Cuff Size: Large adult Pulse: 88 Resp: 20 Temp: 97.5 ??F (36.4 ??C) TempSrc: Temporal SpO2: 99% Weight: 231 lb (105 kg) Height: 5' 6 (1.676 m) Physical Exam Vitals reviewed. Constitutional: General: He is not in acute distress. Appearance: Normal appearance. HENT: Head: Normocephalic and atraumatic. Right Ear: Tympanic membrane, ear canal and external ear normal. Left Ear: Tympanic membrane, ear canal and external ear normal. Nose: Nose normal. Mouth/Throat: Mouth: Mucous membranes are moist. Pharynx: Oropharynx is clear. Eyes: Extraocular Movements: Extraocular movements intact. Conjunctiva/sclera: Conjunctivae normal. Pupils: Pupils are equal, round, and reactive to light. Cardiovascular: Rate and Rhythm: Normal rate and regular rhythm. Pulses: Normal pulses. Heart sounds: Normal heart sounds. Pulmonary: Effort: Pulmonary effort is normal. Breath sounds: Normal breath sounds. Abdominal: General: Bowel sounds are normal. Palpations: Abdomen is soft. Genitourinary: Penis: Normal. Testes: Normal. Musculoskeletal: General: Normal range of motion. Right wrist: Normal. No swelling, effusion or tenderness. Left wrist: Normal. No swelling, effusion or tenderness. Cervical back: Normal range of motion and neck supple. Skin: General: Skin is warm. Capillary Refill: Capillary refill takes less than 2 seconds. Neurological: General: No focal deficit present. Mental Status: He is alert and oriented to person, place, and time. Psychiatric: Mood and Affect: Mood normal. Assessment/Plan Problem List Items Addressed This Visit Routine physical examination - Primary Within normal limits Relevant Orders Comprehensive Metabolic Panel Lipid Panel, Standard On pre-exposure prophylaxis for HIV No longer on Descovy due to insurance not covering I have referred to our PreP navigator so he can be enrolled on PREPDap Relevant Orders Comprehensive Metabolic Panel Lipid Panel, Standard Referral to [facility] Infectious Disease (HIV & Hep C) Class 2 obesity due to excess calories without serious comorbidity in adult Patient has been counseled and educated about diet and exercise Left wrist pain Exam suggestive of CTS 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 The patient/patient's guardian has been informed and has consented to the use of this technology: Yes No future appointments. 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 I prescribed NSAIDS and Splinting at night * Assessment & Plan Note - Bigg Prasad MD - 05/20/2025 1:54 PM EDT Associated Problem(s): Class 2 obesity due to excess calories without serious comorbidity in adult Patient has been counseled and educated about diet and exercise * Addendum Note - Bigg Prasad MD - 05/20/2025 1:30 PM EDTAddended by: BIGG CONKLIN on: 05/20/2025 02:26 PM Modules accepted: Orders * Addendum Note - Sandeep Ferris RN - 05/20/2025 1:30 PM EDTAddended by: SANDEEP FERRIS on: 05/20/2025 02:44 PM Modules accepted: Orders documented in this encounter Plan of Treatment Pending Results Name Type Priority Associated Diagnoses Date /Time Comprehensive Metabolic Panel Lab Routine Routine physical examination On pre-exposure prophylaxis for HIV 05/20/2025 2:37 PM EDT Lipid Panel, Standard Lab Routine Routine physical examination On pre-exposure prophylaxis for HIV 05/20/2025 2:37 PM EDT Scheduled Referrals Name Type Priority Associated Diagnoses Orde r Schedule Referral to [facility] Infect[facility] Disease (HIV & Hep C) Outpatient Referral Routine On pre-exposure prophylaxis for HIV Expected: 05/20/2025 (Approximate), Expires: 05/20/2026 documented as of this encounter Procedures Procedure Name Priority Date/Time Associated Diagnosis Comments LIPID PANEL, STANDARD Routine 05/20/2025 2:37 PM EDT Routine physical examination On pre-exposure prophylaxis for HIV COMPREHENSIVE METABOLIC PANEL Routine 05/20/2025 2:37 PM EDT Routine physical examination On pre-exposure prophylaxis for HIV documented in this encounter Visit Diagnoses Diagnosis Routine physical examination- Primary Routine general medical examination at a health care facility On pre-exposure prophylaxis for HIV Class 2 obesity due to excess calories without serious comorbidity with body mass index (BMI) of 37.0 to 37.9 in adult Left wrist pain Pain in joint, forearm Moderate episode of recurrent major depressive disorder (CMS/HCC) (HCC) Encounter for immunization documented in this encounter Additional Health Concerns Assessment Noted Time PHQ-9 Depression Total Score: 0 09/12/19 25 3:05 PM EST documented as of this encounter Care Teams Flight/Transport Nurse Relationship Specialty Start Date End Date Bigg Garza MD [address] [place] [id number] PCP - General Internal Medicine 10/16/18 documented as of this encounter
[2025-05-20 17:24] LABS: Albumin Level 4.9 g/dL (3.5-5.0); Alkaline Phosphatase 75 U/L (39-117); Anion Gap 11 (12-20); Aspartate Amino Transferase 27 U/L (5-37); Blood Urea Nitrogen 13 mg/dL (9-16); Calcium 9.8 mg/dL (8.4-10.2); Carbon Dioxide 28 mmol/L (22-29); Chloride 107 mmol/L (96-108); Cholesterol 176 mg/dL (<200); Estimated Glomerular Filt Rate > 60; HDL Cholesterol 34 mg/dL (>40); Potassium 4.3 mmol/L (3.3-5.1); Sodium 142 mmol/L (135-145); Total Protein 7.8 g/dL (6.5-8.0); Triglycerides 122 mg/dL (<150)
--- OUTSIDE RECORDS SUMMARY | 2025-05-20 19:02 | XMS_ITS | Encounter Summary ---
Author Organization [employer] Address [address] [facility] 7t [place] [address] Care Team Providers Care Stacking Machine Operator Name Role Phone Bigg Garza MD Primary Care Provide r Encounter Details Date Type Department Care Team (Latest Contact Info) Description 05/20/2025 Travel Social History Tobacco Use Types Packs/Day [...] as of this encounter Plan of Treatment Not on file documented as of this encounter Visit Diagnoses Not on filedocumented in this encounter Additional Health Concerns Assessment Noted Time PHQ-9 Depression Total Score: 0 09/12/19 25 3:05 PM EST documented as of this encounter Care Teams Stacking Machine Operator Relationship Specialty Start Date End Date Bigg Garza MD [address] [place] [address] PCP - General Internal Medicine 10/16/18 documented as of this encounter
--- OUTSIDE RECORDS SUMMARY | 2025-05-20 19:02 | XMS_ITS | Encounter Summary ---
Author Organization [employer] Address [address] [facility] [address]t [place] [address] Care Team Providers Care Coater Operator Insulation Board Name Role Phone Bigg Garza MD Primary Care Provide r Reason for Visit * Reason Comments Med Change Request Encounter Details Date Type Department Care Team ([facility] Contact Info) Description 04/29/2025 Refill [facility] [address] [place], [place] [phone] Bigg Garza MD [address] [place], [place] [phone] Moderate episode of recurrent major depressive disorder (CMS/HCC) ([facility]) Social History Tobacco Use Types Packs/Day Years [...] of recurrent major depressive disorder (CMS/HCC) (HCC) documented in this encounter Additional Health Concerns Assessment Noted Time PHQ-9 Depression Total Score: 0 09/12/19 25 3:05 PM EST documented as of this encounter Care Teams Coater Operator Insulation Board Relationship Specialty Start Date End Date Bigg Garza MD [address] [place] [id number] PCP - General Internal Medicine 10/16/18 documented as of this encounter
--- OUTSIDE RECORDS SUMMARY | 2025-05-20 19:03 | XMS_ITS | Encounter Summary ---
Author Organization [employer] Address [address] [facility] [address]t [place] [address] Care Team Providers Care Screw Machine Operator Name Role Phone Bigg Graza MD Primary Care Provide r Reason for Visit * Reason Onset Date Comments Durable Medical Equipment 05/20/2025 Encounter Details Date Type Department Care Team ([facility] st Contact Info) Description 05/20/2025 Telephone [facility] [address] [place], [place] [phone] Bigg Garza MD [address] [place] [address] Durable Medical Equipment Social History Tobacco Use Types Packs/Day Years [...] encounter Miscellaneous Notes * Telephone Encounter - Ethel Ferris RN - 05/20/2025 2:[address] Jay requests left wrist brace cockup brand for pt's carpal tunnel syndrome. Generated scriptsigned by PCP and gave to pt per PCP request. Pt to try to go to local [employer] to obtain splint, advised him to message on [employer] or call back if unable to obtain and nurses can fax paperwork to [employer]. Pt verbalized understanding. documented in this encounter Plan of Treatment Not on file documented as of this encounter Visit Diagnoses Not on filedocumented in this encounter Additional Health Concerns Assessment Noted Time PHQ-9 Depression Total Score: 0 09/12/19 25 3:05 PM EST documented as of this encounter Care Teams Screw Machine Operator Relationship Specialty Start Date End Date Bigg Garza MD [address] [place] [id number] PCP - General Internal Medicine 10/16/18 documented as of this encounter
--- OUTSIDE RECORDS SUMMARY | 2025-05-20 19:03 | XMS_ITS | Clinical Summary ---
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 Moderate episode of recurrent major depressive d isorder 08/28/2022 Assessment & Plan (08/08/2024 3:58 PM [...] at 4 PM Emergency resources if needed Immunizations Immunization Administration Dates Next Due DTAP (7+)Non Interface 09/29/2008 DTAP (Infanrix) 12/31/2001, 9,1997,09/29,1997 Flu, Multi Dose 0.5 ML 04/04/2019 Flu, Preservative Free 05/24/2023,2021,05/26/2021,06/23,10/16/2018 HPV 9 (Gardasil) 07/27/2015 HPV, QUADRIVALENT 05/28/2014 Hep B, Unspecified 1997,1997, 997 INFLUENZA, SEASONAL, INJECTABLE 07/27/2015,05/28,06/28/2006 INFLUENZA, SEASONAL, INJECTA BLE, PRESERVATIVE FREE 05/02/2024 IPV (IPOL) 12/31/2001, 9,1997,08/04 Influenza Virus Vaccine (FLU MIST), Live Intranasal 06/08/2010 MENINGOCOCCAL ACWY, UNSPECIFIED 09/29/2008 MENINGOCOCCAL MCV4P (MENACTRA) 07/27/2015 MMR (MMR II/Priorix) 12/31/2001,03/25/1998 PPD 11/18/2022 TDAP 09/29/2008 Td (adult),2 Lf tetanus toxo id (TDVAX), preservative free 02/11/2019 Varicella (Varivax), Live Vaccine 09/29/2008, Family History Medical History Relation Name Comments [...] Orientation Not on file Plan of Treatment Health Maintenance Due Date Last Done Comments Anxiety Screening 1997 Depression Monitoring 1997 Hypertension Screening (#1) 2015 Imm-HPV (3 - Male 3-dose series) 10/19/2015 07/27/19 16, 05/28/2014 Alcohol and Drug Screen 07/24/2024 [id number] ( season) 2025 05/02/2024, 06/21/2021, 05/26/2021 Imm-Influenza (#1) 2025 05/02/2024, 1 07/24/2022, 06/13/2022, Additional history exists Tobacco Screening 06/13/2025 06/13/2024 Imm-DTaP/Tdap/Td (9 - Td or Tdap) 02/11/2029 02/11/2019, 09/29/2008, 09/29/2008, Additional history exists Imm-Hepatitis B Completed 1997, 07/24, 1997 HIV Screening Completed 08/18/2023 Hepatitis C Screening Completed 08/18/2023 Insurance [place] [facility]
--- OUTSIDE RECORDS SUMMARY | 2025-05-20 19:03 | XMS_ITS | Encounter Summary ---
Author Organization [employer] Address [address] [facility] 7t [place] [address] Care Team Providers Care Chairman & Chief Executive Officer Name Role Phone Bigg Garza MD Primary Care Provide r Reason for Visit * Reason Comments Med Refill Encounter Details Date Type Department Care Team ([facility] Contact Info) Description 04/01/2025 Refill [facility] [address] [place], [place] [phone] Bigg Garza MD [address] [place], [place] [phone] Moderate episode of recurrent major depressive disorder (CMS/HCC) Social History Tobacco Use Types Packs/Day Years [...] documented as of this encounter Care Teams Chairman & Chief Executive Officer Relationship Specialty Start Date End Date Bigg Garza MD [address] [place] [address] PCP - General Internal Medicine 10/16/18 documented as of this encounter
--- OUTSIDE RECORDS SUMMARY | 2025-05-20 19:03 | XMS_ITS | Clinical Summary ---
Author Organization [employer] Address [address] [place] [address] [address] [place] [address] Care Team Providers Care Flame Annealing Machine Operator Name Role Phone Bigg Garza MD Primary Care Provide r Allergies No known active allergies Medications * This document contains information received from the source organization and may not represent a complete record from that organization. hydrocortisone (Anusol-HC) 2.5 % rectal creamIndication s:External hemorrhoid Apply twice daily to rectum for 1 week 28 g 03/01/20 23 Active doxycycline (Adoxa) 100 MG tabletIndicatio ns:On pre-exposure prophylaxis for HIV 2 tablet Orally Taken as soon as possible after sex, ideally within 24 hours and no later than 72 hours after sex. No more than 200 mg should be taken within a 24-hour period. for 15 day 30 tablet 2 09/12/19 25 Active emtricitabine-t enofovir AF (Descovy) 200-25 MG tablet Take 1 tablet by mouth Once per day. 30 tablet 2 04/15/20 25 Active escitalopram (Lexapro) 10 MG tabletIndicatio ns:Moderate episode of recurrent major depressive disorder (CMS/HCC) (HCC) TAKE 1 TABLET BY MOUTH EVERY DAY 90 tablet 1 05/20/20 25 Active escitalopram (Lexapro) 10 MG tabletIndicatio ns:Moderate episode of recurrent major depressive disorder (CMS/HCC) (HCC) TAKE 1 TABLET BY MOUTH EVERY DAY 30 tablet 1 04/01/20 25 025 Discontinued(Re order (will not trigger notification to Pharmacy)) Active Problems Problem Noted Date Diagnosed Date Elevated blood pressure reading 09/12/2024 Assessment & Plan (09/12/2024 3:38 PM EST): First time, mild 3 months follow up for repeat On pre-exposure prophylaxis for HIV 05/02/2024 Assessment & Plan (05/20/2025 2:00 PM EDT): No longer on Descovy due to insurance not covering I have referred to our PreP navigator so he can be enrolled on PREPDap Assessment & Plan (09/12/2024 3:37 PM EST): [...] Routine physical examination 10/31/2023 Assessment & Plan (05/20/2025 1:58 PM EDT): Within normal limits Assessment & Plan (10/31/2023 2:51 PM EDT): [...] 1:34 PM EDT): Referred to Optometry at [facility]. 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 Moderate episode of recurren t major depressive disorder (CMS/HCC) 08/28/2022 Assessment & Plan (09/12/2024 3:27 PM [...] Claudia Carver at [facility] and [facility]. Pt ran out of Lexapro, will refill Previous Hx: [facility] 06/09/2022 with c/o depression and suicidal ideation. [...] here fort a follow up. seen at [facility] 06/09/2022 with c/o depression and suicidal ideation. [...] here fort a follow up. seen at [facility] 06/09/2022 with c/o depression and suicidal ideation. [...] here fort a follow up. seen at [facility] 06/09/2022 with c/o depression and suicidal ideation. [...] Encounters Date Type Department Care Team Description 05/20/2025 1:30 PM EDT Office Visit [address] [address] Bigg Garza MD Routine physical examination (Primary Dx); On pre-exposure prophylaxis for HIV; Class 2 obesity due to excess calories without serious comorbidity with body mass index (BMI) of 37.0 to 37.9 in adult; Left wrist pain; Moderate episode of recurrent major depressive disorder (CMS/HCC) (HCC); Encounter for immunization 05/20/2025 Telephone [facility] [address] [facility] [place] [place] [address] Bigg Garza MD Durable Medical Equipment 05/20/2025 Travel 05/13/2025 Patient Outreach [facility] [address] [facility] [place] [address] Bigg Garza MD Pre-visit Planning ([facility] screening completed on 08/27/24) 04/29/2025 Refill [facility] [address] [facility] [place] [address] Bigg Garza MD Moderate episode of recurrent major depressive disorder (CMS/HCC) (HCC) 04/15/2025 Orders Only [facility] [address] [facility] [place] [address] Sofi Vernon, SHANNON 04/14/2025 Refill [facility] [address] [place] [address] Reyna Reilly, SHANNON 04/14/2025 Refill [facility] [address] [place] [address] Reyna Reilly, SHANNON 04/01/2025 Refill [facility] [address] [place] [address] Bigg Garza MD Moderate episode of recurrent major depressive disorder (CMS/HCC) 04/01/2025 Refill [facility] [address] [facility] [place] [address] Bigg Garza MD Moderate episode of recurrent major depressive disorder (CMS/HCC) from Last 3 Months Immunizations Immunization Administration Dates Next Due DTaP 12/31/2001, 9,1997,09/29,1997 HPV 9-Valent 07/27/2015 HPV, Quadrivalent 05/28/2014 Hep B, Adolescent or Pediatric 1997,1997,1997 Hep B, Unspecified 1997,1997, 997 IPV 12/31/2001, 9,1997,08/04 Influenza injectable quadriv alent IIV4 with preservative 04/04/2019 Influenza injectable quadriv alent preservative free 05/24/2023,06/13/2022,05/26/2021,06/23,10/16/2018 Influenza live intranasal trivalent 06/08/2010 Influenza, IIV3, injectable 07/27/2015, 4,06/28/2006 Influenza, live, intranasal 06/08/2010 Influenza, seasonal, injecta ble, preservative free 05/20/2025,05/02/2024,07/27/2015,05/28,06/28/2006 MMR 12/31/2001,03/25/1998 Meningococcal ACWY, unspecified 09/29/2008 Meningococcal [...] the past 12 months, has t he [employer], gas, oil or water company threatened to [...] Mass Index 37.28 05/20/2025 1:34 PM EDT Plan of Treatment Health Maintenance Due Date Last Done Comments Disability Screening 1997 Family Planning (PISQ) 2012 HPV Vaccines (3 - Male 3-dose series) 10/19/2015 07/27/2015, 05/28/2014 SDOH Screening 08/27/2025 08/27/2024 Alcohol/Substance Use Screening 09/12/2025 09/12/2024 Depression Screening 09/12/2025 09/12/2024, 09/12/19 Tobacco Screening 05/20/2026 05/20/2025 DTaP/Tdap/Td Vaccines (8 - Td or Tdap) 02/11/2029 02/11/2019, 09/29/2008, 12/31/2001, Additional history exists Lipid Panel 09/12/2029 05/20/2025, 09/12/2024 Zoster Vaccines (1 of 2) 2047 RSV Patients and Patients Aged 60 years or older (1 - 1-dose 75+ series) 2072 Hepatitis B Vaccines Completed 1997, 1997, 1997, Additional history exists IPV Vaccines Completed 12/31/2001, 08/25, 1997, Additional history exists Meningococcal Vaccine Completed 07/27/2015 , 09/29/2008, 09/29/2008 COVID-19 Vaccine Completed 05/02/2024, , 05/26/2021 HIV Screening Completed 04/09/2025, 08/25, 09/12/2024, Additional history exists Hepatitis C Screening Completed 04/09/2025 , 09/12/2024, 08/18/2023, Additional history exists Influenza Vaccine Completed 05/20/2025, , 05/24/2023, Additional history exists HIB Vaccines Aged Out No longer eligi ble based on patient's age to complete this topic Hepatitis A Vaccines Aged Out No long er eligible based on patient's age to complete this topic Meningococcal B Vaccine Aged Out No l onger eligible based on patient's age to complete this topic Pneumococcal Vaccine: Pediatrics (0 to 5 Years) and At-Risk Patients (6 to 49) Years Aged Out No longer eligible based on [...] physical examination On pre-exposure prophylaxis for HIV HIV ANTIBODY/ANTIGEN ([place] DP) Routine 04/09/2025 HEPATITIS C ANTIBODY ([place] DP) Routine 04/09/2025 SYPHILIS ABS ([place] DP) Routine 04/09/2025 CHLAMYDIA/GONORRHEA - URINE ([place] DP) Routine 04/09/2025 CHLAMYDIA/GONORRHEA THROAT SWAB ([place] DP) Routine 04/09/2025 from Last 3 Months Results * Chlamydia/Gonorrhea Throat Swab ([place] DPH) (04/09/2025) Chlamydia Throat Swab Negative Gonorrhea Throat Swab Negative Swab 04/09/2025 [facility] Provider MD LAB MICROBIOLOGY - GENERA L ORDERABLES Final Result * Chlamydia/Gonorrhea, Urine ([place] DPH) (04/09/2025) Chlamydia, Urine Negative Negative, Indeterminate, None Detected, Invalid, Specimen unsatisfactory for evaluation, Weakly Positive, 2+ Gonorrhea, Urine Negative Negative, Indeterminate, None Detected, Invalid, Specimen unsatisfactory for evaluation, Weakly Positive, 2+ Urine 04/09/2025 [facility] Provider LAB URINE ORDERABLES Shakira l Result * Syphilis Antibodies (DPH) (04/09/2025) Syphilis Abs Nonreactive Borderline, Nonreactive, Weakly Reactive, Inconclusive, Specimen unsatisfactory for evaluation Blood Venous blood specimen / Unknown 04/09/2025 [facility] Provider LAB BLOOD ORDERABLES Shakira l Result * Hepatitis C Antibody ([place] DP) (04/09/2025) Hepatitis C Ab Nonreactive Blood 04/09/2025 Historical Provider LAB BLOOD ORDERABLES Shakira l Result * HIV Ab/Ag ([place]) (04/09/2025) HIV Ag/Ab Nonreactive Blood 04/09/2025 Historical Provider LAB BLOOD ORDERABLES Shakira l Result from Last 3 Months Insurance * Guarantor: Sree Sam I Account Type Relation to Patient Date of Phone Billing Address Personal/Family Self [address] Care Teams Flame Annealing Machine Operator Relationship Specialty Start Date End Date Bigg Garza MD [address] [place] [address] PCP - General Internal Medicine 10/16/18
--- OUTSIDE RECORDS SUMMARY | 2025-05-20 19:03 | XMS_ITS | Patient Health Record ---
Author Organization [facility] Address [address] [place] [address] Care Team Providers Care Borough Coordinator Name Role Phone ANALIA LEBRON Unavailable [phone] Allergies No Known Allergies Results Component Value Reference Range Flag Notes Ct/GC SCOUT, Pharyngeal-[id number] Reviewed date:02/07/2025 08:01:36 AM Interpretation:Negative Performing Lab:[facility] [place], [address], [address], [employer], Phone - [phone], Director - [facility] Notes/Report: C. trachomatis, SCOUT, Pharyn Negative Negative N. gonorrhoeae, SCOUT, Pharyn Negative Negative Chlamydia/GC Amplification-[id number] Reviewed date:02/07/2025 08:01:25 AM Interpretation:Negative Performing Lab:[facility] [place], [address], [address], [employer], Phone - [phone], Director - [facility] Notes/Report: Chlamydia trachomatis, SCOUT Negative Negative Neisseria gonorrhoeae, SCOUT Negative Negative HIV Ab/p24 Ag with Reflex-[id number] Reviewed date:02/07/2025 07:59:47 AM Interpretation:Negative Performing Lab:[facility] [place], [address], [address], [employer], Phone - [phone], Director - [facility] Notes/Report: HIV Ab/p24 Ag Screen Non Reactive Non Reactive HIV-1/HIV-2 antibodies and HIV-1 p24 antigen were NOT detected. There is no laboratory evidence of HIV infection. HIV Negative T pallidum Screening [place] -[id number] Reviewed date:02/07/2025 07:58:12 AM Interpretation:Negative Performing Lab:[facility] [place], [address], [address], [place], Phone - [phone], Director - [facility] Notes/Report: T pallidum Antibodies Non Reactive Non Reactive Interpretation: Syphilis: Treponemal Antibodies with Reflex to RPR and RPR Titer, Reverse Screening and Diagnosis Algorithm Treponemal Treponemal Ab RPR, Qn Ab, TPPA Final Interpretation -------- Non N/A N/A No laboratory evidence Reactive of syphilis. Retest in 2-4 weeks if recent exposure is suspected. -------- Reactive Non Non Treponemal antibodies Reactive Reactive not confirmed. Inconclusive for syphilis; potential early syphilis, possible false positive. Retest in 2-4 weeks if recent exposure is suspected. -------- Reactive Non Reactive Treponemal antibodies Reactive detected. Consistent with past or current (potential early) syphilis. -------- Reactive >/=1:1 N/A Treponemal and nontreponemal antibodies detected. Consistent with current or past syphilis. T pallidum Screening [place] -[id number] Reviewed date:06/04/2024 10:18:40 AM Interpretation:Negative Performing Lab:[facility], [address], [address], [place], Phone - [phone], Director - [facility] Notes/Report: T pallidum Antibodies Non Reactive Non Reactive HIV Ab/p24 Ag with Reflex-[id number] Reviewed date:06/04/2024 12:53:53 PM Interpretation:Negative Performing Lab:[facility] [place], [address], [address], [employer], Phone - [phone], Director - [facility] Notes/Report: HIV Ab/p24 Ag Screen Non Reactive Non Reactive HIV-1/HIV-2 antibodies and HIV-1 p24 antigen were NOT detected. There is no laboratory evidence of HIV infection. HIV Negative Ct, Ng, Trich vag by SCOUT-[id number] Reviewed date:06/06/2024 09:52:11 AM Interpretation:Negative Performing Lab:[facility] [place] [facility], [address], [address], [employer], Phone - [phone], Director - [facility] Notes/Report: Chlamydia by SCOUT Negative Negative Gonococcus by SCOUT Negative Negative Trich vag by SCOUT Negative Negative Lipid Panel-[id number] Reviewed date:06/04/2024 10:58:11 AM Interpretation:LDL elevated Performing Lab:[facility], [address] [place] [address], Phone - [phone], Director - [facility] Notes/Report: Cholesterol, Total 172 100-199 mg/dL Triglycerides 88 0-149 mg/dL HDL Cholesterol 41 >39 mg/dL VLDL Cholesterol Igor 16 5-40 mg/dL LDL Chol Calc ([facility]) 115 0-99 mg/dL H HCV Antibody-[id number] Reviewed date:10/23/2024 12:24:55 PM Interpretation:Negative Performing Lab:[facility] [place] [facility], [address], [address], [employer], Phone - [phone], Director - [facility] Notes/Report: Clinical Information:SRC: URINE Hep C Virus Ab Non Reactive Non Reactive HCV antibody alone does not differentiate between previously resolved infection and active infection. Equivocal and Reactive HCV antibody results should be followed up with an HCV RNA test to support the diagnosis of active HCV infection. Ct/GC SCOUT, Pharyngeal-[id number] Reviewed date:10/24/2024 07:41:20 AM Interpretation:Negative Performing Lab:[facility] [place] [facility], [address], [address], [employer], Phone - [phone], Director - [facility] Notes/Report: Clinical Information:SRC: URINE C. trachomatis, SCOUT, Pharyn Negative Negative N. gonorrhoeae, SCOUT, Pharyn Negative Negative Ct, Ng, Trich vag by SCOUT-[id number] Reviewed date:10/24/2024 07:41:11 AM Interpretation:Negative Performing Lab:[facility] [place], [address], [address], [place], Phone - [phone], Director - [facility] Notes/Report: Clinical Information:SRC: URINE Chlamydia by SCOUT Negative Negative Gonococcus by SCOUT Negative Negative Trich vag by SCOUT Negative Negative HIV Ab/p24 Ag with Reflex-[id number] Reviewed date:10/23/2024 11:26:09 AM Interpretation:Negative Performing Lab:[facility] [place], [address], [address], [employer], Phone - [phone], Director - [facility] Notes/Report: Clinical Information:SRC: URINE HIV Ab/p24 Ag Screen Non Reactive Non Reactive HIV-1/HIV-2 antibodies and HIV-1 p24 antigen were NOT detected. There is no laboratory evidence of HIV infection. HIV Negative T pallidum Screening [place] -[id number] Reviewed date:10/23/2024 11:26:02 AM Interpretation:Negative Performing Lab:[facility] [place], [address], [address], [employer], Phone - [phone], Director - [facility] Notes/Report: Clinical Information:SRC: URINE T pallidum Antibodies Non Reactive Non Reactive Reason For Referral No Information Medications Medication SIG (Take, Route, Frequency, Duration) Notes Start Date End Date Status Lexapro Active Descovy 200-25 MG Tablet 1 tablet Orally Once a day; Duration: 90 days Please do not dispense blister pack, clt prefers bottle with 90 day supply Not-Taking/PRN Doxycycline Monohydrate 100 MG Tablet 2 tablet Orally Taken as soon as possible after sex, ideally within 24 hours and no later than 72 hours after sex. No more than 200 mg should be taken within a 24-hour period.; Duration: 15 days 02/27/2024 Not-Taking/PRN Social History Sex Assigned At : Social History Observation Description Sex Assigned At Male Social History HIV Risk Assessment Social Info Question Answer Notes Additional Questions Is an HIV Risk Assessment being c onducted? Yes Have you been tested for HIV before? Yes Did you have a blood transfusion prior to 1985? No Do you have an unlicensed body piercing or tattoo? Yes Reproductive Life Plan: Social Info Question Answer Notes Reproductive Life Plan: Do you want to have children? No Human Trafficking: Social Info Question Answer Notes Human Trafficking Experienced: No PrEP for HIV: Social Info Question Answer Notes PrEP for HIV Is the client rupinder martinez in beginning/continuing PrEP for HIV? Yes Do you currently have any HIV+ partners? No In the past 6 months, have you had any HIV+ partners? No Are you a commercial sex worker? No Sexual History: Social Info Question Answer Notes Sexual History: Sexual History Reviewed: Partner s, Practices, Protection/Past STIs, Prevention of Currently sexually active? Yes Sexually active with: Women Number of female partners 1 Your sexual activities include: oral intercourse, vaginal intercourse Reviewed types of EC? No Do you use condoms? Yes Condoms are used: most of the time Date of last unprotected intercourse: 11/21/2024 Number of partners in past 3 months: 2 Number of partners in past year: 3 Does your partner(s) currently have any STIs? No Completed Gardasil vaccination series? Yes Counseling Provided: Social Info Question Answer Notes Counseling Provided Please indicate the length of time, in minutes, that counseling was provided. 7 Counseling Was Provided By: wu Drugs/Alcohol: Social Info Question Answer Notes Drug/Alcohol Use Do you or have you used drugs? No Do you or have you used alcohol? Yes, currently monthly use Food Access: Social Info Question Answer Notes Food Access The Client's current access to food is Secure Food Access Relationships: Social Info Question Answer Notes Relationships Has the client exper ienced any of the following: Client has never experienced harmful relationships Housing Social Info Question Answer Notes Housing The client's current living situation is: stable housing Tobacco Use: Social Info Question Answer Notes Tobacco Use: Do you/have you used tobacco? No Tobacco Smoking Status Never smoker Vital Signs Blood pressure diastolic 75 mm Hg 02/03/2025 Height 65 in 02/03/2025 Blood pressure systolic 115 mm Hg 02/03/2025 Weight 232.5 lbs 02/03/2025 BMI 38.69 kg/m2 02/03/2025 Encounters Encounter Location Date Provider Diagnosis [facility] [address] [facility] [address] [place], [place] [id number] 06/03/2024 ANALIA GABAI Encounter for screen ing for human immunodeficiency virus [HIV] Z11.4 ; Encounter for HIV pre-exposure prophylaxis Z29.81 ; Encounter for screening for infections with a predominantly sexual mode of transmission Z11.3 ; Other problems related to lifestyle Z72.89 and Other filler leaf cutter long (current) drug therapy Z79.899 [facility] [address] [place] [phone] 10/22/2024 ANALIA GABAI Encounter for screen ing for human immunodeficiency virus [HIV] Z11.4 ; Encounter for HIV pre-exposure prophylaxis Z29.81 ; Encounter for screening for infections with a predominantly sexual mode of transmission Z11.3 ; Other problems related to lifestyle Z72.89 ; Contact with and (suspected) exposure to other viral communicable diseases Z20.828 and Screening for other viral diseases Z11.59 [facility] [address] [place] [address] [phone] 02/03/2025 ANALIA GABAI Encounter for HIV pre-exposure prophylaxis Z29.81 ; Encounter for screening for infections with a predominantly sexual mode of transmission Z11.3 ; Encounter for screening for human immunodeficiency virus [HIV] Z11.4 and Other problems related to lifestyle Z72.89 [facility] [address] [place] [address] [phone] 06/03/2024 ANALIA GABAI [facility] [address] [place] [address] [phone] 10/22/2024 ANALIA GABAI Assessments Encounter Date Diagnosis (ICD [...] Risk Document low risk of morbidity/morta lity 10/22/2024 Encounter for screening for human immunodeficiency virus [...] Risk Document low risk of morbidity/morta lity 02/03/2025 Encounter for screening for infections with a predominantly sexual mode of transmission (ICD-10 - Z11.3) Reviewed routine screening, safe sex and consistent barrier protection. Aware of window period for testing and testing options. Discussed symptoms that would warrant further evaluation and follow-up care Spent ___ minutes doing the following: Chart Prep Obtaining/revie wing history Performing medically necessary exam Counseling/Coor dination of Care Documenting the visit Educating the patient Ordering medication/test /procedures Communication of test results Established Patient: [id number] 30 Minutes 02/03/2025 Encounter for HIV pre-exposure prophylaxis (ICD-10 - Z29.81) Spent ___ minutes doing the following: Chart Prep Obtaining/revie wing history Performing medically necessary exam Counseling/Coor dination of Care Documenting the visit Educating the patient Ordering medication/test /procedures Communication of test results Established Patient: [id number] 30 Minutes 02/03/2025 Encounter for screening for human immunodeficiency virus [HIV] (ICD-10 - Z11.4) Spent ___ minutes doing the following: Chart Prep Obtaining/revie wing history Performing medically necessary exam Counseling/Coor dination of Care Documenting the visit Educating the patient Ordering medication/test /procedures Communication of test results Established Patient: [id number] 30 Minutes 10/22/2024 Encounter for HIV pre-exposure prophylaxis (ICD-10 - [...] risk of morbidity/morta lity 06/03/2024 Encounter for screening for infections with [...] Risk Document low risk of morbidity/morta lity 10/22/2024 Encounter for screening for infections with a [...] Risk Document low risk of morbidity/morta lity 02/03/2025 Other problems related to lifestyle (ICD-10 - Z72.89) Spent ___ minutes doing the following: Chart Prep Obtaining/revie wing history Performing medically necessary exam Counseling/Coor dination of Care Documenting the visit Educating the patient Ordering medication/test /procedures Communication of test results Established Patient: [id number] 30 Minutes 10/22/2024 Contact with and (suspected) exposure to other [...] 57% for gonorrhea among people with HIV. Doxy-PEP for bacterial STI prevention consists of [...] effects include: microbiome changes and antibiotic resistance Need 2 out of 3 Sections from [...] Risk Document low risk of morbidity/morta lity 10/22/2024 Other problems related to lifestyle (ICD-10 - [...] Document low risk of morbidity/morta lity 06/03/2024 Other problems related to lifestyle (ICD-10 [...] Document low risk of morbidity/morta lity 06/03/2024 Other custodial (current) drug therapy (ICD-10 - Z79.899) Need [...] Risk Document low risk of morbidity/morta lity 10/22/2024 Screening for other viral diseases (ICD-10 - Z11.59) Need 2 out of 3 Sections from [...] Risk Document low risk of morbidity/morta lity Plan Of Treatment No Information Insurance Providers Payer Name Payer Address Payer Phone Subscriber Number Group Number Insured Name Patient Relationship to Insured Coverage Start Date Coverage End Date [facility] [employer] [address] [address] [place], [place] [phone] [id number] Sree Sam Self - patient is the insured Medical (General) History Medical History History ICD Code Chronic urethral pain and discharge, all work up with urology negative GC Trich LDL slightly elevated Surgical History Surgery Date(Month/Year) keloids 09/2020
[2025-05-20 19:34] LABS: Alanine Aminotransferase 34 U/L (0-40)
== END 2025-05-20 14:36 | disposition home or self-care (01) ==
LOC: HO.HHCL 14:35
PROVIDERS: PCP Internal Medicine; Visit Provider Internal Medicine
DX: Z00.00 Encounter for general adult medical examination without abnormal findings (principal); Z79.899 Other long term (current) drug therapy
CPT/HCPCS: 36415; 80053; 80061